=== PATIENT | female | born 1940 | race Caucasian/White ===

== ENCOUNTER 2020-12-23 17:19 | Observation (INO) | payer OTHER ==
--- OUTSIDE RECORDS SUMMARY | 2020-12-23 17:23 | XMS REPORT | Continuity of Care Document ---
:1940 Author Organization [facility] t Address [address] [place] [address] Care Team Providers Name Role Phone VLAD Primary Care Physician Unavailable SYSTEM, NOT IN Attending Clinician Unavailable VLAD Attending Clinician Unavailable Azeb Sevilla Attending Clinician VLAD Admitting Clinician Unavailable Payers Payer Name Policy Type Policy Effective Date Expiration Date Sour ce Number AETNA [facility] [id number] 2019 MD Rojas SUPPLEMENTAETAUGUST [facility] 00:00:00 SUPPLEMENT-SECONDARY [id number] 2018 -PresentMedigap MEDICAREMEDICARE PART [id number] MD Rojas A AND 00:00:00 [id number]-P [phone], [place] Problems Condition Condition Condition Status Onset Resolution Last Treating Co mments Source Name Details Category Date Date Treatment Clinician Date Lipoma of Lipoma of Problem Active [facility] forearm [facility] Abnormal Abnormal Problem Active [facility] findings Findings da on on Medical diagnostic Diagnostic Gr oup imaging of Imaging of lung Lung Respirator Respirator Problem Active M at[facility] y finding y Finding [facility] Lumbar Problem Active 2017-09-20 Memor ia spondylosi 02:35:58 l s Lumbar [facility] (disorder) spondylosi s (disorder) Active Problem 09/20/2017 Medical Group Rotator Problem Active 2017-09-20 Satya nathaniel cuff 02:35:58 l syndrome Rotator Alice nn (disorder) cuff syndrome (disorder) Active Problem 09/20/2017 Medical Group Tendinitis Problem Active 2017-09-20 M emoria of hip 02:35:58 l (disorder) Juan F n Tendinitis of hip (disorder) Active Problem 09/20/2017 [facility] Group Allergies, Adverse Reactions, Alerts Allergy Allergy Status Severity Reaction(s) Onset Inactive Treating Comm ents Source Name Type Date Date Clinician Plavix Allergy Active Itching [facility] Social History Social Habit Start Date Stop Date Quantity Comments Source Sex Assigned At MD Rojas Exposure to SARS-CoV-2 (event) Not sure MD Rojas Smoking Status Start Date Stop Date Source Social History 2017-09-17 23:08:18 2017-09-17 23:08:18 [facility] Medications Ordered Filled Start Stop Current Ordering Indication Dosage Frequency Signature Comments Components Source Medication Medication Date Date Medication? Clinician (SIG) Name Name tramadol 2016-10 Yes 1 or 2 Mem[facility] hydrochlori 2-01 tab, PO, l de 50 MG 23:19: Q6H, no Juan F n Oral Tablet 00 driving, X 30 day, # 60 tab, 0 Refill(s) amlodipine amlodipine No amlodipine [facility] 10 mg 10 mg 10 mg da tablet TAKE tablet TAKE tablet Medical 1 TABLET BY 1 TABLET BY TAKE 1 Group MOUTH ONCE MOUTH ONCE TABLET BY DAILY DAILY MOUTH ONCE DAILY amlodipine amlodipine No amlodipine [facility] 5 mg tablet 5 mg tablet 5 mg d a TAKE 1 TAKE 1 tablet Medical TABLET BY TABLET BY TAKE 1 Vidya up MOUTH TWICE MOUTH TWICE TABLET BY DAILY DAILY MOUTH TWICE DAILY aspirin aspirin No aspirin [facility] r 325MG ONCE 325MG ONCE 325MG ONCE da A DAY A DAY A DAY Medical Group atorvastati atorvastati No atorvastat [place] n 40 mg n 40 mg in 40 mg da tablet TAKE tablet TAKE tablet Medical 1 TABLET BY 1 TABLET BY TAKE 1 Group MOUTH ONCE MOUTH ONCE TABLET BY DAILY DAILY MOUTH ONCE DAILY biotin biotin No biotin [facility] Diovan HCT Diovan HCT No 1 Q1D Diovan HCT [facility] 320 mg-12.5 320 mg-12.5 320 d a mg tablet mg tablet mg-12.5 mg Medical Take 1 Take 1 tablet Group tablet tablet Take 1 every day every day tablet by oral by oral every day route. route. by oral route. Fluzone Fluzone No Fluzone [facility] High-Dose High-Dose High-Dose da [facility]ex [facility] (PF) 240 (PF) 240 (PF) 240 mcg/0.7 mL mcg/0.7 mL mcg/0.7 mL IM syringe IM syringe IM syringe PHARMACY PHARMACY PHARMACY ADMINISTERE ADMINISTERE ADMINISTER D D ED gabapentin gabapentin No 1capsul BID gabapentin [facility] 100 mg 100 mg e(s) 100 mg da capsule capsule capsule Medica l Take 1 Take 1 Take 1 Group capsule capsule capsule twice a day twice a day twice a by oral by oral day by route. route. oral route. hydrocodone hydrocodone No hydrocodon [facility] 5 5 e 5 da mg-acetamin mg-acetamin mg-acetami Medical ophen 325 ophen 325 nophen 325 Group mg tablet mg tablet mg tablet TAKE 1 TAKE 1 TAKE 1 TABLET(S) TABLET(S) TABLET(S) TWICE A DAY TWICE A DAY TWICE A BY ORAL BY ORAL DAY BY ROUTE FOR ROUTE FOR ORAL ROUTE 28 DAYS. 28 DAYS. FOR 28 DAYS. isosorbide isosorbide No isosorbide [facility] mononitrate mononitrate mononitrat da ER 60 mg ER 60 mg e ER 60 mg M edical tablet,exte tablet,exte tablet,ext Group nded nded ended release 24 release 24 release 24 hr TAKE 1 hr TAKE 1 hr TAKE 1 TABLET BY TABLET BY TABLET BY MOUTH ONCE MOUTH ONCE MOUTH ONCE DAILY DAILY DAILY latanoprost latanoprost No latanopros [facility] 0.005 % eye 0.005 % eye t 0.005 % da drops drops eye drops Medical INSTILL 1 INSTILL 1 INSTILL 1 Group DROP INTO DROP INTO DROP INTO EACH EYE AT EACH EYE AT EACH EYE BEDTIME BEDTIME AT BEDTIME losartan losartan No losartan [facility] 100 mg 100 mg 100 mg da tablet TAKE tablet TAKE tablet Medical 1 TABLET BY 1 TABLET BY TAKE 1 Group MOUTH ONCE MOUTH ONCE TABLET BY DAILY DAILY MOUTH ONCE DAILY metformin metformin No metformin [facility] 500 mg 500 mg 500 mg da tablet TAKE tablet TAKE tablet Medical 1 TABLET BY 1 TABLET BY TAKE 1 Group MOUTH ONCE MOUTH ONCE TABLET BY DAILY DAILY MOUTH ONCE DAILY metoprolol metoprolol No 1 Q1D metoprolol [facility] succ 50 succ 50 succ 50 da mg-hydrochl mg-hydrochl mg-hydroch Medical orothiazide orothiazide lorothiazi Group 12.5 mg 12.5 mg de 12.5 mg tablet,ext. tablet,ext. tablet,ext rel 24 hr rel 24 hr .rel 24 hr Take 1 Take 1 Take 1 tablet tablet tablet every day every day every day by oral by oral by oral route. route. route. metoprolol metoprolol No metoprolol [facility] tartrate 50 tartrate 50 tartrate da mg tablet mg tablet 50 mg Medi heidi TAKE 1 TAKE 1 tablet Group TABLET BY TABLET BY TAKE 1 MOUTH TWICE MOUTH TWICE TABLET BY DAILY DAILY MOUTH TWICE DAILY potassium potassium No potassium [facility] pravastatin pravastatin No 1 BID pravastati [facility] 40 mg 40 mg n 40 mg da tablet Take tablet Take tablet Medical 1 tablet 1 tablet Take 1 Group twice a day twice a day tablet by oral by oral twice a route. route. day by oral route. tizanidine tizanidine No tizanidine [facility] 2 mg tablet 2 mg tablet 2 mg d a TAKE 1 TAKE 1 tablet Medical TABLET BY TABLET BY TAKE 1 Vidya up MOUTH ONCE MOUTH ONCE TABLET BY DAILY AT DAILY AT MOUTH ONCE BEDTIME FOR BEDTIME FOR DAILY AT 28 DAYS 28 DAYS BEDTIME FOR 28 DAYS acetaminoph acetaminoph No acetaminop [facility] en 300 en 300 hen 300 da mg-codeine mg-codeine mg-codeine Medical 30 mg 30 mg 30 mg Group tablet TAKE tablet TAKE tablet 1 TABLET BY 1 TABLET BY TAKE 1 MOUTH TWICE MOUTH TWICE TABLET BY DAILY DAILY MOUTH NEEDED NEEDED TWICE DAILY NEEDED amlodipine amlodipine No amlodipine [facility] 5MG ONCE A 5MG ONCE A 5MG ONCE A da DAY DAY DAY Medical Group Immunizations Ordered Immunization Filled Immunization Date Status Commen ts Source Name Name influenza nasal, influenza nasal, 2011-10-18 Completed Andriy foster unspecified unspecified 00:00:00 Medical Grou p formulation formulation Pneumococcal Pneumococcal 2011-10-18 Completed Luis Eduardo Conjugate, Conjugate, 00:00:00 Medical Group unspecified unspecified formulation formulation Vital Signs Vital Name Observation Time Observation Value Comments Source BP Diastolic 2020-10-03 00:00:00 83 mm[Hg] [facility] Height 2020-10-03 00:00:00 65 [in_i] [facility] BMI (Body Mass 2020-10-03 00:00:00 24.8 kg/m2 [facility] human resources assistant manager Medical Index) Group BP Systolic 2020-10-03 00:00:00 157 mm[Hg] [facility] Body Weight 2020-10-03 00:00:00 149.3 [lb_av] [facility] Weight 2017-09-17 23:02:00 [facility] Heart Rate 2017-09-17 23:02:00 [facility] Systolic (mm Hg) 2017-09-17 23:02:00 Satya roc [facility] Diastolic (mm Hg) 2017-09-17 23:02:00 [facility] Procedures Procedure Date / Time Performed Performing Clinician Cecelia tracey MRI of shoulder 2017-06-09 05:00:00 [facility] rudd Hernia Repair 2011-10-18 00:00:00 [facility] Hernia Repair 2010-10-18 00:00:00 [facility] Colostomy Placement 2003-10-18 00:00:00 [facility] Other 2003-10-18 00:00:00 [facility] Hip replacement 1998-10-18 06:00:00 [facility] Her rudd Colonoscopy [facility] Plan of Care Planned Activity Planned Date Details Comments Source Instructions [facility] Encounters Start End Encounter Admission Attending Care Care Encounter Source Date/Time Date/Time Type Type Clinicians Facility Department ID 2020-12-19 Outpatient SYSTEM, [facility] [id number] 14:19:14 PROVIDER Jermain guthrie 2020-10-03 2020-10-03 Andre TOBIN [place] - [id number] Tim cage 00:00:00 00:00:00 DO Grabiel: [facility] barby jimenez [address] [place] [address] [facility] [address], [facility], [place] [address] , Ph. [phone] 2017-10-12 2017-10-12 Outpatient Kevyn [facility] [id number] [facility] 19:42:00 19:42:00 DOMENICA 2017-09-17 2017-09-17 Outpatient Roel, [facility] [id number] 16:45:00 23:59:59 Hector Sanchez Results Test Description Test Time Test Comments Results Result Comments Source CBC with Differential 2017-10-12 22:27:00 Test Item Value Reference Range Interpretation Comme nts WBC (test code = WBC) 5.4 K/cumm 4.4-10.5 N RBC (test code = RBC) 4.15 M/cumm 3.75-5.20 N Hemoglobin (test code = HGB) 13.5 gm/dL 12.2-14.8 N Hematocrit (test code = HCT) 42.6 % 36.5-44.4 N MCV (test code = MCV) 102.8 fL 80-100 H MCH (test code = MCH) 32.6 pg 27.0-32.5 H MCHC (test code = MCHC) 31.7 g/dL 32.0-37.5 L RDW (test code = RDW) 12.8 % 11.5-14.5 N Platelet Count (test code = PLTCT) 256 K/cumm 140-440 N MPV (test code = MPV) 9.3 fL Diff Method (test code = DIFFM) Manual Neutrophil (test code = NEUT) 57.0 % 36-70 N Lymphocyte (test code = LYMPH) 30.0 % 12-44 N Monocyte (test code = MONO) 7.0 % 0-11 N Eosinophil (test code = EOS) 5.0 % 0-7 N Basophil (test code = BASO) 1.0 % 0-2 N Neutro Abs (test code = ANEUT) 3.1 K/cumm 1.6-7.4 N Lymph Abs (test code = ALYMPH) 1.6 K/cumm 0.5-4.6 N [place] Abs (test code = AMONO) 0.4 K/cumm 0.0-1.2 N Eos Abs (test code = AEOS) 0.27 K/cumm 0.00-0.74 N Baso Abs (test code = ABASO) 0.1 K/cumm 0.00-0.21 N RBC Morphology (test code = RBCMRPH) Slight Macrocytosis Macrocytosis (test code = MACRO) Slight Platelet Est (test code = PLTEST) Adequate Platelets on Smear D-Dimer, [id number] 21:39:00 Test Item Value Reference Range Interpretation Comments D-Dimer, Quant (test code = DDQNT) 2327 ng/mL 0-500 H Lipid [id number] 20:34:00 Test Item Value Reference Range Interpretation Comments Cholesterol (test 191 mg/dL 0-200 N code = CHOL) Triglycerides (test 187 mg/dL 9-200 N code = TRIG) HDL (test code = 43 mg/dL 50-60 L HDL) Chol/HDL (test code 4.4 Ratio 0.0-4.4 N = CHOLPHDL) LDL, Calculated 111 0-130 N (NOTE)RISK O F HEART (test code = LDLC) DISEASEPu blished by [place] Heart AssociationAnal yte Optim al Boderline Increased RiskC HOL <200 200-239 >240TRI G <150 150-199 >200HDL Male: >60 <40HDL Female: >60 <50 LDL < 100 130-15 9 >160 LDL NEAR OPTIMAL IS 100- 129 VLDL (test code = 37 mg/dL 5-40 N VLDL) LDL/HDL (test code = 3 LDLPHDL) [id number] 20:34:00 Test Item Value Reference Range Interpretation Comments NT ProBnp (test code = PBNP) 120 pg/mL 0-449 N Comprehensive Metabolic [id number] 20:34:00 Test Item Value Reference Range Interpretation Comments Sodium (test code = 138 mmol/L 135-145 N NA) Potassium (test 3.7 mmol/L 3.5-5.1 N code = K) Chloride (test code 99 mmol/L 98-105 N = CL) Carbon Dioxide 29 mmol/L 22-29 N (test code = CO2) Glucose (test code 133 mg/dL 70-115 H = GLU) Blood Urea Nitrogen 13 mg/dL 8-23 N (test code = BUN) Creatinine (test 0.8 mg/dL 0.5-0.9 N code = CREAT) Calcium (test code 10.1 mg/dL 8.3-10.5 N = CA) Prot Total (test 7.4 g/dL 6.4-8.3 N code = TP) Albumin (test code 4.5 g/dL 3.5-5.2 N = ALB) A/G Ratio (test 1.6 Ratio code = AGRATIO) Globulin (test code 2.9 2.9-3.1 N = GLOB) Bili Total (test 0.8 mg/dL 0.1-0.9 N code = TBIL) Alk Phos (test code 55 U/L 35-104 N = APHOS) AST (test code = 33 U/L 1-32 H AST) ALT (test code = 32 U/L 1-33 N ALT) BUN/Creatinine 16.3 Ratio (test code = BCRATIO) Anion Gap (test 10 mmol/L 7-16 N code = AGAP) Estimated GFR (test >60 eGFR (es timated code = GFR) mL/min/1.73m2 Glomerular Michael tration Rate) is an est imated value,calculate d from the patient's s artemio creatinine usin g the MDRD equation.I t is NOT the patient 's actual GFR. The eGFR provides a more clinicallyusefu l measure of kidn ey disease than se rum creatinine alone.This calculation diogenes es sex and race into account, if the informationis provided. If th e race is not provided , and the patient isAfrican-Ameri can, multiply by 1.2 12. If sex is not prov ided, and thepatient is female, multipl y by 0.742. Results for patients <18 ye ars ofage have not been validated by th e MDRD study and shoul d be interpretedwith caution.eGFR Re sult Interpretation: eGFR > or = 60 is in t he Normal RangeeGF R < 60 may mean kidney diseaseeGFR < 1 5 may mean kidney failureRange s recommended by the National Kidney Foundation,http ://nkd ep.nih.gov
[2020-12-23] MEDS ORDERED: MORPHINE 2 MG/ML SYR IV PRN (18:10)
[2020-12-23] MEDS ORDERED: ONDANSETRON 4 MG/2 ML VIAL IV PRN (18:10)
[2020-12-23] MEDS ORDERED: ACETAMINOPHEN 500 MG TAB PO PRN (18:10)
[2020-12-23] MEDS ORDERED: FUROSEMIDE 20 MG/ 2ML VIAL IV ONE (18:29)
[2020-12-23] MEDS ORDERED: NA CHLORIDE 0.9% 250 ML IV SCH (19:00)
[2020-12-23 20:54] VITALS: BMI 23.1
[2020-12-23] MEDS ORDERED: NA CHLORIDE 0.9% 250 ML ONE (23:40)
[2020-12-23 23:58] VITALS: O2SAT 99
--- NOTE | 2020-12-24 00:42 | P.HP ---
Certification for Inpatient Patient admitted to: Observation With expected LOS: <2 Midnights Patient will require the following post-hospital care: None Practitioner: I am a practitioner with admitting privileges, knowledge of patient current condition, hospital course, and medical plan of care. Services: Services provided to patient in accordance with Admission requirements found in Title 42 Section 412.3 of the Code of Federal Regulations Patient History Date of Service: 12/24/20 Reason for admission: blood transfusion History of Present Illness: Ms. Quinones is an 80 yo female with newly diagnosed esophageal cancer, HTN, and history of anemia here today as a direct admit for a blood transfusion. Today was her first day of chemotherapy, but was found to have a low hemoglobin on blood work so initial round was stopped and she was brought here for a transfusion so she can finish her chemotherapy session tomorrow. She reports increased fatigue, dizziness and FREEDMAN over the past few weeks. She denies palpitations. Allergies clopidogrel [From Plavix] Allergy (Verified 12/23/20 20:54) Rash meperidine [From Demerol] Allergy (Verified 12/23/20 20:54) Rash Home Medications: Aspirin 325 mg PO DAILY 12/23/20 Atorvastatin Calcium 40 mg PO DAILY 12/23/20 Folic Acid 1 tab PO DAILY 12/23/20 Isosorbide Mononitrate [Isosorbide Mononitrate ER] 60 mg PO DAILY 12/23/20 Latanoprost/Pf [Latanoprost 0.005% Eye Drop] 1 drop EACH EYE BEDTIME 12/23/20 Losartan Potassium 100 mg PO DAILY 12/23/20 Metoprolol Tartrate 50 mg PO BID 12/23/20 Vitamin B Complex [B Complex] 1 tab PO DAILY 12/23/20 - Past Medical/Surgical History Has patient received pneumonia vaccine in the past: Yes Diabetic: No -: Hypertension -: High Cholesterol -: Cancer of the Esophagus -: Diverticulitis -: h/o anemia -: Shoulder Replacement -: HIp Replacement -: Colon Resection - Family History Mother -: Diabetes - Social History Smoking Status: Former smoker Caffeine use: Yes Place of Residence: Home Review of Systems General: Malaise, As per HPI Eyes: Unremarkable ENT: Unremarkable Respiratory: Shortness of Breath, SOB with Excertion, As per HPI Cardiovascular: Unremarkable Gastrointestinal: Unremarkable Genitourinary: Unremarkable Musculoskeletal: Unremarkable Integumentary: Unremarkable Neurological: Other (dizziness) Lymphatics: Unremarkable Physical Examination - Vital Signs Temperature: 97.8 F Blood Pressure: 141/64 Pulse: 76 Respirations: 18 Pulse Ox (%): 100 - Physical Exam General: Alert, In no apparent distress, Oriented x3, Cooperative HEENT: Atraumatic, Normocephalic, PERRLA, Mucous membr. moist/pink, EOMI, Sclerae nonicteric Neck: Supple, 2+ carotid pulse no bruit, JVD not distended, No Thyromegaly, No LAD Respiratory: Clear to auscultation bilaterally, Normal air movement Cardiovascular: No edema, Normal pulses, Regular rate/rhythm, Normal S1 S2, No gallops, No rubs, No murmurs Capillary refill: <2 Seconds Gastrointestinal: Normal bowel sounds, Soft and benign, Non-distended, No ascites, No tenderness, No masses, No rebound, No guarding Musculoskeletal: No clubbing, No swelling, No contractures, No erythema, No tenderness, No warmth Integumentary: No rashes, No breakdown, No significant lesion, No tenderness/swelling, No erythema, No warmth, No cyanosis Neurological: Normal speech, Normal strength at 5/5 x4 extr, Normal tone, Sensation intact, Cranial nerves 3-12 intact, Normal affect Lymphatics: No axilla or inguinal lymphadenopathy Assessment and Plan - Problems (Diagnosis) (1) Blood transfusion during current hospitalisation Current Visit: Yes Status: Acute Plan: -will give 2 pRBCs and recheck H/H -CBC, iron panel, B12, and folate pending -will continue to monitor (2) HLD (hyperlipidemia) Current Visit: Yes Status: Chronic Plan: continue home medications. Qualifiers: Hyperlipidemia type: unspecified Qualified Code(s): E78.5 - Hyperlipidemia, unspecified (3) HTN (hypertension) Current Visit: Yes Status: Chronic Plan: continue home medications Qualifiers: Hypertension type: essential hypertension Qualified Code(s): I10 - Essential (primary) hypertension Discharge Plan: Home Plan to discharge in: 24 Hours - Advance Directives Does patient have a Living Will: Yes Does patient have a Durable POA for Healthcare: Yes - Code Status/Comfort Care Code Status Assessed: Yes (full code) Critical Care: No Time Spent Managing Pts Care (In Minutes): 70
[2020-12-24] MEDS ORDERED: FUROSEMIDE 20 MG/ 2ML VIAL IV ONE (05:33)
[2020-12-24] MEDS: LOSARTAN POTASSIUM 50 MG TABLET PO SCH ×2 (08:37→08:38)
[2020-12-24 08:51] LABS: Absolute Lymphocytes (CBC) 0.4 K/uL (0.7-4.9); Basophils % 0.1 % (0-1.3); Hematocrit 29.4 % (36.0-45.0); Lymphocytes % 2.5 % (15.3-44.8); MPV 7.7 fL (7.6-11.3); RBC Red Blood Cell Count 3.69 M/uL (3.86-4.86)
[2020-12-24 08:52] LABS: Protime INR 1.03
[2020-12-24] MEDS ORDERED: METOPROLOL TAR 50 MG TAB PO SCH (09:00)
[2020-12-24] MEDS ORDERED: ISOSORBIDE MONO SR 60 MG TAB PO SCH (09:00)
[2020-12-24] MEDS ORDERED: ATORVASTATIN 40 MG TAB PO SCH (09:00)
[2020-12-24] MEDS ORDERED: FOLIC ACID 1 MG TABLET PO SCH (09:00)
[2020-12-24] MEDS ORDERED: VITAMIN B COMPLEX 1 CAP PO SCH (09:00)
[2020-12-24 09:52] LABS: Albumin 2.9 g/dL (3.4-5.0); Bilirubin Total 0.8 mg/dL (0.2-1.0); Potassium 4.6 mmol/L (3.5-5.1); Protein, Total 7.5 g/dL (6.4-8.2)
[2020-12-24 10:10] LABS: Anisocytosis SLIGHT; Blood Morphology Comment NOTED (NOT SEEN); Hypersegmented Neutrophils PRESENT; Hypochromasia 1+; Platelet Estimate ADEQ
[2020-12-24 14:04] LABS: Absolute Lymphocytes (CBC) 0.6 K/uL (0.7-4.9); Hematocrit 25.4 % (36.0-45.0); Lymphocytes % 3.4 % (15.3-44.8); MPV 7.5 fL (7.6-11.3); RBC Red Blood Cell Count 3.23 M/uL (3.86-4.86)
[2020-12-24 14:44] LABS: Blood Morphology Comment NOTED (NOT SEEN); Hypochromasia 1+; Platelet Estimate ADEQ; White Blood Cell Scan OK (OK)
[2020-12-24 14:46] VITALS: BP 117/61; TEMP 96.7
[2020-12-24] MEDS ORDERED: ENSURE ENLIVE 237 ML CAN PO SCH (21:00)
[2020-12-24] MEDS ORDERED: LATANOPROST 0.005% 2.5ML OPTH OPTH SCH (21:00)
[2020-12-27 00:10] LABS: Transferrin 268 mg/dL (200-360)
[2020-12-27 00:44] LABS: Folic Acid, (Folate) < 20.0 ng/mL (3.1-17.5)
--- NOTE | 2021-01-14 00:26 | P.DS ---
Discharge Date: 12/24/20 Disposition: ROUTINE DISCHARGE Discharge Condition: GOOD Reason for Admission: blood transfusion Brief History of Present Illness: Ms. Quinones is an 80 yo female with newly diagnosed esophageal cancer, HTN, and history of anemia here today as a direct admit for a blood transfusion. Today was her first day of chemotherapy, but was found to have a low hemoglobin on blood work so initial round was stopped and she was brought here for a transfusion so she can finish her chemotherapy session tomorrow. She reports increased fatigue, dizziness and FREEDMAN over the past few weeks. She denies palpitations. Hospital Course: Patient was transfused 2 units of packed red blood cells and hemoglobin is stable. Patient is clinically doing well. At this time, patient is stable for discharge with close outpatient followup with hematology. Vital Signs/Physical Exam: Temp Pulse Resp BP Pulse Ox 96.7 F L 60 16 117/61 97 12/24/20 12:00 12/24/20 12:00 12/24/20 12:00 12/24/20 12:00 12/24/20 12:00 General: Alert, In no apparent distress, Oriented x3 Laboratory Data at Discharge: WBC 17.00 K/uL (4.3-10.9) H D 12/24/20 13:34 Hgb 8.2 g/dL (12.0-15.0) L 12/24/20 13:34 Hct 25.4 % (36.0-45.0) L 12/24/20 13:34 Plt Count 371 K/uL (152-406) 12/24/20 13:34 PT 11.8 SECONDS (9.5-12.5) 12/24/20 08:24 INR 1.03 12/24/20 08:24 APTT 19.8 SECONDS (24.3-36.9) L 12/24/20 08:24 Sodium 128 mmol/L (136-145) L 12/24/20 08:24 Potassium 4.6 mmol/L (3.5-5.1) 12/24/20 08:24 BUN 17 mg/dL (7-18) 12/24/20 08:24 Creatinine 0.68 mg/dL (0.55-1.3) 12/24/20 08:24 Glucose 192 mg/dL (74-106) H 12/24/20 08:24 Total Bilirubin 0.8 mg/dL (0.2-1.0) 12/24/20 08:24 AST 21 U/L (15-37) 12/24/20 08:24 ALT 18 U/L (12-78) 12/24/20 08:24 Alkaline Phosphatase 102 U/L (45-117) 12/24/20 08:24 Home Medications: Aspirin 325 mg PO DAILY 12/23/20 Atorvastatin Calcium 40 mg PO DAILY 12/23/20 Folic Acid 1 tab PO DAILY 12/23/20 Isosorbide Mononitrate [Isosorbide Mononitrate ER] 60 mg PO DAILY 12/23/20 Latanoprost/Pf [Latanoprost 0.005% Eye Drop] 1 drop EACH EYE BEDTIME 12/23/20 Losartan Potassium 100 mg PO DAILY 12/23/20 Metoprolol Tartrate 50 mg PO BID 12/23/20 Vitamin B Complex [B Complex] 1 tab PO DAILY 12/23/20 Physician Discharge Instructions: -OK TO DC IV AND DC HOME -FOLLOW-UP WITH PCP IN 1-2 WEEKS -FOLLOW-UP WITH Hematology IN 1-2 WEEKS -PLEASE MAKE SURE ALL DIAGNOSTIC STUDIES ARE AVAILABLE AND HAVE BEEN REVIEWED WITH PATIENT PRIOR TO DISCHARGE -RETURN TO THE ER IF Symptoms worsen -CALL DR. SHEPPARD AT [phone] IF ANY QUESTIONS REGARDING HOSPITAL STAY -PLEASE CALL THE FLOOR AT [phone] IF ANY MEDICATION OR NURSING QUESTIONS Diet: Regular Activity: Fall precautions Time spent managing pt's care (in minutes): 30
== END 2020-12-24 15:25 | disposition home or self-care (01) ==
LOC: 2ND 17:19
PROVIDERS: ADMIT Hospitalist; ATTEND Hospitalist
DX: C15.9 Malignant neoplasm of esophagus, unspecified (principal); D63.0 Anemia in neoplastic disease; I10 Essential (primary) hypertension; E78.00 Pure hypercholesterolemia, unspecified; Z96.619 Presence of unspecified artificial shoulder joint; Z96.649 Presence of unspecified artificial hip joint; Z87.891 Personal history of nicotine dependence; E78.5 Hyperlipidemia, unspecified
CPT/HCPCS: 36430 ×2; 85025 ×2; 36415; 86900; 86850; 85610; 86901; 85730; 82728; 82746; 82607; 83540; 80053; 84466; J1940; G0378 ×2; P9016 ×2; J7050 ×2

== ENCOUNTER 2021-09-16 10:55 | Inpatient (IN) | payer OTHER ==
--- OUTSIDE RECORDS SUMMARY | 2021-09-16 10:58 | XMS REPORT | Clinical Summary ---
:1940 Author Organization [facility] MD [facility] Address [address] [place] [address] Care Team Providers Name Role Phone Shelbie Valenzuela MD Unavailable Allergies Not on File Medications Not on file Active Problems Not on file Encounters Date Type Specialty Care Team Description 01/07/2021 Ancillary Procedure Radiology Cancer 01/07/2021 Ancillary Procedure Radiology Cancer 01/07/2021 Ancillary Procedure Radiology Cancer 01/07/2021 Ancillary Procedure Radiology Cancer 01/05/2021 Ancillary Procedure Radiology Cancer 12/25/2020 Lab Requisition Bahman Noriega MD Young, Jerry D, MD 12/19/2020 Travel after 09/16/2020 Social History Tobacco Use Types Packs/Day Years Used Date Never Assessed Sex Assigned at Date Recorded Not on file Last Filed Vital Signs Not on file Plan of Treatment Not on file Procedures Procedure Name Priority Date/Time Associated Comments Diagnosis OSI INTERVENTIONAL Routine 12/09/2020 7:45 Cancer Resul ts for this PM TOXICOLOGY SUPERVISOR procedure are i n the results section. OSI US VASCULAR Routine 12/09/2020 7:45 Cancer Results for this PM TOXICOLOGY SUPERVISOR procedure are i n the results section. OSI CT CHEST ABDOMEN Routine 10/31/2020 7:45 Cancer Res ults for this PELVIS PM TOXICOLOGY SUPERVISOR procedure are i n the results section. after 09/16/2020 Results OSI Interventional (12/09/2020 7:45 PM TOXICOLOGY SUPERVISOR) Specimen Narrative Systemgenerated, Documentation - 021 8:45 PM CDT Study acquired at another institution. For comparison only. No MD Rojas originated interpretation requested or a vailable. OSI US Vascular (12/09/2020 7:45 PM TOXICOLOGY SUPERVISOR) Specimen Narrative Systemgenerated, Documentation - 021 8:45 PM CDT Study acquired at another institution. For comparison only. No MD Rojas originated interpretation requested or a vailable. OSI CT CHEST ABDOMEN PELVIS (10/31/2020 7:45 PM TOXICOLOGY SUPERVISOR) Specimen Narrative Systemgenerated, Documentation - 021 8:46 PM CDT Study acquired at another institution. For comparison only. No MD Rojas originated interpretation requested or a vailable. after 09/16/2020 Insurance Payer Benefit Plan Subscriber ID Effective Phone Address Typ e / Group Dates AETNA SENIOR AETNA SENIOR [id number] 2019-Prese [address] [employer] [id number] [place] [address] MEDICARE MEDICARE PART [id number] 2002-Prese [phone] [facility] Medicare A AND B nt 782 SOLUTIONS [address] [facility] [address] Nadya Quinones Personal/Family Self 1940 [address] (Home) [place] [address] Care Teams Computer Service Technician Relationship Specialty Start Date End Date Amirah Valenzuela, PCP - External Primary Care Family Practice MD Provider [address] [place] [address]
--- OUTSIDE RECORDS SUMMARY | 2021-09-16 11:01 | XMS REPORT | Continuity of Care Document ---
:1940 Author Organization [facility] t Address [address] [place] [address] Care Team Providers Name Role Phone VLAD Primary Care Physician Unavailable Carlton Attending Clinician Unavailable Lindsay Attending Clinician Unavailable SYSTEM, NOT IN Attending Clinician Unavailable GARCIA Attending Clinician Unavailable ELAINE PARRY Attending Clinician Unavailable Pamela Noriega MD Attending Clinician Fredi Spain MD Attending Clinician VLAD Attending Clinician Unavailable Carlton Admitting Clinician Unavailable Lindsay Admitting Clinician Unavailable ERROLHOPE Admitting Clinician Unavailable VLAD Admitting Clinician Unavailable Payers Payer Name Policy Type Policy Number Effective Expiration Source Date Date MEDICARE B-[place]: [id number] 2002 NOV[employer]ima SOLUTIONS 00:00:00 AETNA (MEDICARE [id number] SUPPLEMENT) [facility] [id number] [facility] INS [id number] 2008 CO (PPO) 00:00:00 [employer] [id number] COMPANY - MEDICARE SELECT - PLAN F (MEDICARE SUPPLEMENT) AETNA SENIOR [id number] 2019 MD Rojas SUPPLEMENTAETNA 00:00:00 SENIOR SUPPLEMENT-SECONDARY [id number] 9-PresentPO [address] [address], [place] [address]Agidobt MEDICAREMEDICARE PART [id number] 2002 MD Bob Tapia AND 00:00:00 [id number] 2002- [id number] [place], [place] [address]Medicare Problems Condition Condition Condition Status Onset Resolution [...] y finding y Finding [facility] Allergies, Adverse Reactions, Alerts Allergy Allergy Status Severity Reaction(s) Onset Inactive Treating Comm ents Source Name Type Date Date Clinician MEPERIDI Allergy [facility] Low [facility] CLOPIDOG Allergy [facility] Plavix Allergy Active Itching [facility] Social History Social Habit Start Date Stop Date Quantity Comments Source Sex Assigned At [birth year] MD Rojas 00:00:00 00:00:00 Smoking Status Start Date Stop Date Source Former Smoker [facility] Medications Ordered Filled Start Stop Current Ordering Indication Dosage Frequency Signature Comments Components Source Medication Medication Date Date Medication? Clinician (SIG) Name Name latanoprost latanoprost No latanopros [place] 0.005 % [...] [facility] amlodipine amlodipine No amlodipine [place] 10 mg [...] Fluzone [place] High-Dose High-Dose High-Dose da [facility] (PF) 240 (PF) 240 (PF) 240 [...] MOUTH ONCE MOUTH ONCE DAILY DAILY DAILY Immunizations Ordered Immunization Filled Immunization Date Status Commen ts Source Name Name influenza nasal, influenza nasal, 2011-10-18 Completed [place] unspecified unspecified 00:00:00 Medical Grou p formulation formulation Pneumococcal Pneumococcal 2011-10-18 Completed Luis Eduardo Conjugate, Conjugate, 00:00:00 Medical Group unspecified unspecified formulation formulation Vital Signs Vital Name Observation Time Observation Value Comments Source WEIGHT 2021-05-15 06:50:00 71.215 kg WEIGHT 2021-05-14 11:00:00 71.351 kg WEIGHT 2021-05-13 05:22:00 73.9 kg WEIGHT 2021-05-12 05:52:00 73.5 kg WEIGHT 2021-05-11 06:00:00 70.9 kg WEIGHT 2021-05-10 06:00:00 67.2 kg HEIGHT 2021-05-09 13:00:00 165.1 cm WEIGHT 2021-05-09 13:00:00 67.2 kg HEIGHT 2021-05-08 16:28:00 152.4 cm WEIGHT 2021-05-08 16:28:00 65.318 kg WEIGHT 2021-05-15 06:50:00 71.215 kg WEIGHT 2021-05-14 11:00:00 71.351 kg WEIGHT 2021-05-13 05:22:00 73.9 kg WEIGHT 2021-05-12 05:52:00 73.5 kg WEIGHT 2021-05-11 06:00:00 70.9 kg WEIGHT 2021-05-10 06:00:00 67.2 kg HEIGHT 2021-05-09 13:00:00 165.1 cm WEIGHT 2021-05-09 13:00:00 67.2 kg HEIGHT 2021-05-08 16:28:00 152.4 cm WEIGHT 2021-05-08 16:28:00 65.318 kg BP Diastolic 2020-10-03 00:00:00 83 mm[Hg] [facility] Height 2020-10-03 00:00:00 65 [in_i] [facility] BMI (Body Mass 2020-10-03 00:00:00 24.8 kg/m2 [facility]) Group BP Systolic 2020-10-03 00:00:00 157 mm[Hg] [facility] Body Weight 2020-10-03 00:00:00 149.3 [lb_av] [facility] Procedures Procedure Date / Time Performing Clinician Source Performed OSI INTERVENTIONAL 2020-12-10 01:45:35 Amirah Valenzuela MD A nderson OSI US VASCULAR 2020-12-10 01:45:17 Amirah Valenzuela MD Shan rson OSI CT CHEST ABDOMEN 2020-11-01 01:45:56 Reena Alaniz MD Shan rson PELVIS Hernia Repair 2011-10-18 00:00:00 [facility] Hernia Repair 2010-10-18 00:00:00 [facility] Colostomy Placement 2003-10-18 00:00:00 [facility] Other 2003-10-18 00:00:00 [facility] Plan of Care Planned Activity Planned Date Details Comments Source Instructions [facility] Encounters Start End Encounter Admission Attending Care Care Encounter Source Date/Time Date/Time Type Type Clinicians Facility Department ID 2021-09-06 Outpatient Young_J MMG MM [place] 22:15:23 [facility]25 [facility] 2021-09-03 Outpatient Young_J MMG MMG [place] 14:02:01 [facility] 2021-09-03 Outpatient Young_J MMG MMG [place] 13:51:34 223 [facility] 2021-09-03 Outpatient Young_J MMG MMG [place] 13:35:08 219 [facility] 2021-09-03 Outpatient Maluf_C MMG MMG [place] 13:27:23 217 [facility] 2021-09-03 Outpatient Maluf_C MMG MMG [place] 13:15:01 215 [facility] 2021-09-03 Outpatient Maluf_C MM MM [place] 11:30:06 118 Medical Group 2021-08-30 Outpatient Young_J MM MM 4268 [place] 15:20:37 422 Medical [facility] 2021-08-30 Outpatient Young_J MMG MM 4268 [place] 01:08:45 330 Medical [facility] 2021-08-29 Outpatient Young_J MMG MM 4268 [place] 19:56:26 219 Medical Group 2021-08-29 Outpatient Young_J MMG MM 42 [place] 19:19:49 210 Medical [facility] 2021-08-29 Outpatient Young_J MM MM 4268 [place] 17:17:29 123 Medical [facility] 2021-08-29 Outpatient Young_J MM MM 4268 [place] 15:53:08 108 [facility] 2020-12-19 Outpatient SYSTEM, MDA MDA [id number] 14:19:14 PROVIDER Jermain guthrie 2021-05-10 2021-05-10 Outpatient YESSICA ZELAYA 100 [id number] Yessica 00:00:00 00:00:00 MAYRA dior 2021-05-08 2021-05-08 [facility] [id number] [address] [place] [address] 00:00:00 23:59:00 Mallory 2021-05-08 2021-05-08 Emergency ER [facility] Emergency [id number] [facility] 16:14:00 16:14:00 2021-01-07 2021-01-07 Outpatient EL MDA MDA [id number] MD 18:04:58 18:04:58 Jermain o [place] 2021-01-07 2021-01-07 Outpatient EL MDA MDA [id number] MD 18:04:53 18:04:53 Jermain o [place] 2021-01-07 2021-01-07 Outpatient EL MDA MDA [id number] MD 18:04:49 18:04:49 Jermain o [place] 2021-01-07 2021-01-07 Outpatient EL MDA MDA [id number] MD 18:04:45 18:04:45 Jermain guthrie 2021-01-05 2021-01-05 Outpatient [facility] [id number] 20:32:06 20:32:06 Jermain guthrie 2020-10-03 2020-10-03 Andre MMG [place] - [id number] M [facility] 00:00:00 00:00:00 Grabiel, DO: d a 600 [facility] [address] [place] - [address], [facility], [facility] [address] , Ph. [phone] 2017-10-12 2017-10-12 [id number] 19:42:00 19:42:00 [facility] 2017-05-13 2017-05-13 Outpatient Jocelyn_Kevyn [facility] [id number] [place] 03:09:00 03:09:00 225 [facility] Results Test Description Test Time Test Comments Results Result Comments Source POCT-GLUCOSE METER 2021-05-15 12:43:00 Test Item Value Reference Range Interpretation Comme nts POC-GLUCOSE METER (BEAKER) 117 mg/dL 70-110 H : [facility] [facility] (test code = 1538) [facility], [address]: Gravel Roofer/Techni mindi ID = [id number] for BRIAN LOMELI POCT-GLUCOSE [id number] 08:21:00 Test Item Value Reference Range Interpretation Comments POC-GLUCOSE METER 141 mg/dL 70-110 H : [facility] ([facility]) (test code = [place] [facility], 1538) [address]: Gravel Roofer/Techni mindi ID = [id number] for BRIAN RUSSELL COMPREHENSIVE METABOLIC [id number] 05:28:00 Test Item Value Reference Range Interpretation Comments TOTAL PROTEIN 4.8 gm/dL 6.0-8.3 L (BEAKER) (test code = 770) ALBUMIN (BEAKER) 2.3 g/dL 3.5-5.0 L (test code = 1145) ALKALINE PHOSPHATASE 375 U/L 40-150 H (BEAKER) (test code = 346) BILIRUBIN TOTAL 1.3 mg/dL 0.2-1.2 H (BEAKER) (test code = 377) SODIUM (BEAKER) (test 137 meq/L 136-145 code = 381) POTASSIUM (BEAKER) 3.9 meq/L 3.5-5.1 (test code = 379) CHLORIDE (BEAKER) 108 meq/L 98-107 H (test code = 382) CO2 (BEAKER) (test 20 meq/L 22-29 L code = 355) BLOOD UREA NITROGEN 8 mg/dL 7-21 (BEAKER) (test code = 354) CREATININE (BEAKER) 0.65 mg/dL 0.57-1.25 (test code = 358) GLUCOSE RANDOM 100 mg/dL 70-105 (BEAKER) (test code = 652) CALCIUM (BEAKER) 8.3 mg/dL 8.4-10.2 L (test code = 697) AST (SGOT) (BEAKER) 47 U/L 5-34 H (test code = 353) ALT (SGPT) (BEAKER) 32 U/L 6-55 (test code = 347) EGFR (BEAKER) (test 87 mL/min/1.73 ESTIMA MEGHAN GFR IS code = 1092) sq m NOT ACCURATE CREATININE CLEARANCE IN PREDICTING GLOMERULAR FILTRATION RATE . ESTIMATED GFR I S NOT APPLICABLE FOR DIALYSIS PATIEN TS. Gravel Roofer ID - [id number] 05:28:00 Test Item Value Reference Range Interpretation Comments MAGNESIUM (BEAKER) (test code = 1.6 mg/dL 1.6-2.6 627) Gravel Roofer ID - [id number] 05:28:00 Test Item Value Reference Range Interpretation Comments PHOSPHORUS (BEAKER) (test code = 2.2 mg/dL 2.3-4.7 L 604) Gravel Roofer ID - BSCBC W/PLT COUNT & AUTO [id number] 04:40:00 Test Item Value Reference Range Interpretation Comments WHITE BLOOD CELL COUNT (BEAKER) 4.8 K/ L 3.5-10.5 (test code = 775) RED BLOOD CELL COUNT (BEAKER) 2.35 M/ L 3.93-5.22 L (test code = 761) HEMOGLOBIN (BEAKER) (test code = 7.2 GM/DL 11.2-15.7 L 410) HEMATOCRIT (BEAKER) (test code = 22.8 % 34.1-44.9 L 411) MEAN CORPUSCULAR VOLUME (BEAKER) 97.0 fL 79.4-94.8 H (test code = 753) MEAN CORPUSCULAR HEMOGLOBIN 30.6 pg 25.6-32.2 (BEAKER) (test code = 751) MEAN CORPUSCULAR HEMOGLOBIN CONC 31.6 GM/DL 32.2-35.5 L (BEAKER) (test code = 752) RED CELL DISTRIBUTION WIDTH 17.2 % 11.7-14.4 H (BEAKER) (test code = 412) PLATELET COUNT (BEAKER) (test 139 K/CU MM 150-450 L code = 756) MEAN PLATELET VOLUME (BEAKER) 10.3 fL 9.4-12.3 (test code = 754) NUCLEATED RED BLOOD CELLS 0 /100 WBC 0-0 (BEAKER) (test code = 413) NEUTROPHILS RELATIVE PERCENT 60 % (BEAKER) (test code = 429) LYMPHOCYTES RELATIVE PERCENT 26 % (BEAKER) (test code = 430) MONOCYTES RELATIVE PERCENT 9 % (BEAKER) (test code = 431) EOSINOPHILS RELATIVE PERCENT 4 % (BEAKER) (test code = 432) BASOPHILS RELATIVE PERCENT 1 % (BEAKER) (test code = 437) NEUTROPHILS ABSOLUTE COUNT 2.88 K/ L 1.56-6.13 (BEAKER) (test code = 670) LYMPHOCYTES ABSOLUTE COUNT 1.26 K/ L 1.18-3.74 (BEAKER) (test code = 414) MONOCYTES ABSOLUTE COUNT (BEAKER) 0.41 K/ L 0.24-0.36 H (test code = 415) EOSINOPHILS ABSOLUTE COUNT 0.18 K/ L 0.04-0.36 (BEAKER) (test code = 416) BASOPHILS ABSOLUTE COUNT (BEAKER) 0.03 K/ L 0.01-0.08 (test code = 417) IMMATURE GRANULOCYTES-RELATIVE 1 % 0-1 PERCENT (BEAKER) (test code = 2801) POCT-GLUCOSE [id number] 22:03:00 Test Item Value Reference Range Interpretation Comments POC-GLUCOSE METER 119 mg/dL 70-110 H : TESTED Willie Mckeon [facility] 6720 (BEAKER) (test code = [place], 1538) [address]: Gravel Roofer/Techni mindi ID = [id number] for Shaka Alas POCT-GLUCOSE [id number] 17:32:00 Test Item Value Reference Range Interpretation Comments POC-GLUCOSE METER 93 mg/dL 70-110 : TESTED A T [facility] 6720 (BEAKER) (test code = [facility], 1538) [address]: Gravel Roofer/Techni mindi ID = [id number] for BRIAN FRANKS POCT-GLUCOSE [id number] 11:24:00 Test Item Value Reference Range Interpretation Comments POC-GLUCOSE METER 107 mg/dL 70-110 : TESTED A T [facility] 6720 (BEAKER) (test code = [facility], 1538) [address]: Gravel Roofer/Techni mindi ID = [id number] for BRIAN RUSSELL OVA AND PARASITE [id number] 09:44:00 Test Item Value Reference Range Interpretation Comments DIRECT SMEAR - No ova or parasites No ova or parasites O\T\P (BEAKER) seen seen (test code = 196) See scanned reportBLOOD [id number] 09:00:00 Test Item Value Reference Range Interpretation Comments CULTURE (BEAKER) (test No growth in 5 days code = 1095) BLOOD [id number] 09:00:00 Test Item Value Reference Range Interpretation Comments CULTURE (BEAKER) (test No growth in 5 days code = 1095) STOOL CULTURE + SHIGA [id number] 08:03:00 Test Item Value Reference Range Interpretation Comments CULTURE (BEAKER) No Salmonella, Shigella (test code = 1095) or Campylobacter isolated POCT-GLUCOSE [id number] 07:55:00 Test Item Value Reference Range Interpretation Comments POC-GLUCOSE METER 88 mg/dL 70-110 : TESTED A T [facility] 6720 (BEAKER) (test code = [facility], 1538) [address]: Gravel Roofer/Techni mindi ID = [id number] for BRIAN FRANKS COMPREHENSIVE METABOLIC [id number] 05:14:00 Test Item Value Reference Range Interpretation Comments TOTAL PROTEIN 4.9 gm/dL 6.0-8.3 L (BEAKER) (test code = 770) ALBUMIN (BEAKER) 2.5 g/dL 3.5-5.0 L (test code = 1145) ALKALINE PHOSPHATASE 357 U/L 40-150 H (BEAKER) (test code = 346) BILIRUBIN TOTAL 1.8 mg/dL 0.2-1.2 H (BEAKER) (test code = 377) SODIUM (BEAKER) (test 134 meq/L 136-145 L code = 381) POTASSIUM (BEAKER) 3.9 meq/L 3.5-5.1 (test code = 379) CHLORIDE (BEAKER) 107 meq/L 98-107 (test code = 382) CO2 (BEAKER) (test 22 meq/L 22-29 code = 355) BLOOD UREA NITROGEN 11 mg/dL 7-21 (BEAKER) (test code = 354) CREATININE (BEAKER) 0.66 mg/dL 0.57-1.25 (test code = 358) GLUCOSE RANDOM 88 mg/dL 70-105 (BEAKER) (test code = 652) CALCIUM (BEAKER) 8.1 mg/dL 8.4-10.2 L (test code = 697) AST (SGOT) (BEAKER) 57 U/L 5-34 H (test code = 353) ALT (SGPT) (BEAKER) 43 U/L 6-55 (test code = 347) EGFR (BEAKER) (test 86 mL/min/1.73 ESTIMA MEGHAN GFR IS code = 1092) sq m NOT ACCURATE CREATININE CLEARANCE IN PREDICTING GLOMERULAR FILTRATION RATE . ESTIMATED GFR I S NOT APPLICABLE FOR DIALYSIS PATIEN TS. Gravel Roofer ID - MARK [id number] 05:14:00 Test Item Value Reference Range Interpretation Comments MAGNESIUM (BEAKER) (test code = 1.7 mg/dL 1.6-2.6 627) Gravel Roofer ID - MARK [id number] 05:14:00 Test Item Value Reference Range Interpretation Comments PHOSPHORUS (BEAKER) (test code = 2.6 mg/dL 2.3-4.7 604) Gravel Roofer ID - MARK MCBC W/PLT COUNT & AUTO [id number] 04:39:00 Test Item Value Reference Range Interpretation Comments WHITE BLOOD CELL COUNT (BEAKER) 6.2 K/ L 3.5-10.5 (test code = 775) RED BLOOD CELL COUNT (BEAKER) 2.69 M/ L 3.93-5.22 L (test code = 761) HEMOGLOBIN (BEAKER) (test code = 8.4 GM/DL 11.2-15.7 L 410) HEMATOCRIT (BEAKER) (test code = 25.9 % 34.1-44.9 L 411) MEAN CORPUSCULAR VOLUME (BEAKER) 96.3 fL 79.4-94.8 H (test code = 753) MEAN CORPUSCULAR HEMOGLOBIN 31.2 pg 25.6-32.2 (BEAKER) (test code = 751) MEAN CORPUSCULAR HEMOGLOBIN CONC 32.4 GM/DL 32.2-35.5 (BEAKER) (test code = 752) RED CELL DISTRIBUTION WIDTH 17.5 % 11.7-14.4 H (BEAKER) (test code = 412) PLATELET COUNT (BEAKER) (test 138 K/CU MM 150-450 L code = 756) MEAN PLATELET VOLUME (BEAKER) 10.4 fL 9.4-12.3 (test code = 754) NUCLEATED RED BLOOD CELLS 0 /100 WBC 0-0 (BEAKER) (test code = 413) NEUTROPHILS RELATIVE PERCENT 70 % (BEAKER) (test code = 429) LYMPHOCYTES RELATIVE PERCENT 20 % (BEAKER) (test code = 430) MONOCYTES RELATIVE PERCENT 6 % (BEAKER) (test code = 431) EOSINOPHILS RELATIVE PERCENT 3 % (BEAKER) (test code = 432) BASOPHILS RELATIVE PERCENT 1 % (BEAKER) (test code = 437) NEUTROPHILS ABSOLUTE COUNT 4.29 K/ L 1.56-6.13 (BEAKER) (test code = 670) LYMPHOCYTES ABSOLUTE COUNT 1.24 K/ L 1.18-3.74 (BEAKER) (test code = 414) MONOCYTES ABSOLUTE COUNT (BEAKER) 0.36 K/ L 0.24-0.36 (test code = 415) EOSINOPHILS ABSOLUTE COUNT 0.18 K/ L 0.04-0.36 (BEAKER) (test code = 416) BASOPHILS ABSOLUTE COUNT (BEAKER) 0.04 K/ L 0.01-0.08 (test code = 417) IMMATURE GRANULOCYTES-RELATIVE 1 % 0-1 PERCENT (BEAKER) (test code = 2801) POCT-GLUCOSE [id number] 00:04:00 Test Item Value Reference Range Interpretation Comments POC-GLUCOSE METER 95 mg/dL 70-110 : TESTED A T [facility] 6720 (BEAKER) (test code = [facility], 153) [address]: Gravel Roofer/Techni mindi ID = [id number] for Alicia Vuong POCT-GLUCOSE [id number] 16:53:00 Test Item Value Reference Range Interpretation Comments POC-GLUCOSE METER 92 mg/dL 70-110 : TESTED A T [facility] 6720 (BEAKER) (test code = [facility], 153) [address]: Gravel Roofer/Techni mindi ID = [id number] for MAURYA KATERIN (V), ROXANNE POCT-GLUCOSE [id number] 12:17:00 Test Item Value Reference Range Interpretation Comments POC-GLUCOSE METER 101 mg/dL 70-110 : TESTED A T [facility] 6720 (BEAKER) (test code = [facility], 153) [address]: Gravel Roofer/Techni mindi ID = [id number] for RAMESH ORTIZ (V), ROXANNE CBC W/PLT COUNT & AUTO [id number] 11:46:00 Test Item Value Reference Range Interpretation Comments WHITE BLOOD CELL COUNT (BEAKER) 5.7 K/ L 3.5-10.5 (test code = 775) RED BLOOD CELL COUNT (BEAKER) 2.49 M/ L 3.93-5.22 L (test code = 761) HEMOGLOBIN (BEAKER) (test code = 7.6 GM/DL 11.2-15.7 L 410) HEMATOCRIT (BEAKER) (test code = 23.1 % 34.1-44.9 L 411) MEAN CORPUSCULAR VOLUME (BEAKER) 92.8 fL 79.4-94.8 (test code = 753) MEAN CORPUSCULAR HEMOGLOBIN 30.5 pg 25.6-32.2 (BEAKER) (test code = 751) MEAN CORPUSCULAR HEMOGLOBIN CONC 32.9 GM/DL 32.2-35.5 (BEAKER) (test code = 752) RED CELL DISTRIBUTION WIDTH 17.8 % 11.7-14.4 H (BEAKER) (test code = 412) PLATELET COUNT (BEAKER) (test 112 K/CU MM 150-450 L code = 756) MEAN PLATELET VOLUME (BEAKER) 10.2 fL 9.4-12.3 (test code = 754) NUCLEATED RED BLOOD CELLS 0 /100 WBC 0-0 (BEAKER) (test code = 413) (CELLAVISION MANUAL DIFF)2021-05-13 11:46:00 Test Item Value Reference Range Interpretation Comments NEUTROPHILS - REL 75 % (CELLAVISION)(BEAKER) (test code = 2816) LYMPHOCYTES - REL 21 % (CELLAVISION)(BEAKER) (test code = 2817) EOSINOPHILS - REL 2 % (CELLAVISION)(BEAKER) (test code = 2819) BANDS - REL (CELLAVISION)(BEAKER) 2 % 0-10 (test code = 2826) NEUTROPHILS - ABS 4.28 K/ul 1.56-6.13 (CELLAVISION)(BEAKER) (test code = 2830) LYMPHOCYTES - ABS 1.20 K/ul 1.18-3.74 (CELLAVISION)(BEAKER) (test code = 2831) EOSINOPHILS - ABS 0.11 K/uL 0.04-0.36 (CELLAVISION)(BEAKER) (test code = 2834) BANDS - ABS (CELLAVISION)(BEAKER) 0.11 K/uL 0.00-0.80 (test code = 2840) TOTAL COUNTED (BEAKER) (test code = 100 1351) CLUMPED PLATELETS (BEAKER) (test Present code = 436) SMUDGE CELLS (BEAKER) (test code = Present 1371) GIANT PLATELETS (BEAKER) (test code Present = 313) POIKILOCYTES (BEAKER) (test code = 1+ few 966) NATALIE CELLS (BEAKER) (test code = 1+ few 474) ARTIFACT (CELLAVISION)(BEAKER) Present (test code = 3432) PLATELET CONCENTRATION Decreased (CELLAVISION)(BEAKER) (test code = 3438) Gravel Roofer ID - Kenyon Randolph comments: Slide comments:POCT-GLUCOSE [id number] 08:51:00 Test Item Value Reference Range Interpretation Comments POC-GLUCOSE METER 87 mg/dL 70-110 : TESTED A T [facility] 6720 (BEAKER) (test code = [place], 1538) [address]: Gravel Roofer/Techni mindi ID = [id number] for RAMÓN CONKLIN (Donna)ROXANNE COMPREHENSIVE METABOLIC [id number] 06:17:00 Test Item Value Reference Range Interpretation Comments TOTAL PROTEIN 4.3 gm/dL 6.0-8.3 L (BEAKER) (test code = 770) ALBUMIN (BEAKER) 2.1 g/dL 3.5-5.0 L (test code = 1145) ALKALINE PHOSPHATASE 308 U/L 40-150 H (BEAKER) (test code = 346) BILIRUBIN TOTAL 1.8 mg/dL 0.2-1.2 H (BEAKER) (test code = 377) SODIUM (BEAKER) (test 135 meq/L 136-145 L code = 381) POTASSIUM (BEAKER) 4.1 meq/L 3.5-5.1 (test code = 379) CHLORIDE (BEAKER) 110 meq/L 98-107 H (test code = 382) CO2 (BEAKER) (test 20 meq/L 22-29 L code = 355) BLOOD UREA NITROGEN 18 mg/dL 7-21 (BEAKER) (test code = 354) CREATININE (BEAKER) 0.63 mg/dL 0.57-1.25 (test code = 358) GLUCOSE RANDOM 80 mg/dL 70-105 (BEAKER) (test code = 652) CALCIUM (BEAKER) 7.7 mg/dL 8.4-10.2 L (test code = 697) AST (SGOT) (BEAKER) 75 U/L 5-34 H (test code = 353) ALT (SGPT) (BEAKER) 51 U/L 6-55 (test code = 347) EGFR (BEAKER) (test 90 mL/min/1.73 ESTIMA MEGHAN GFR IS code = 1092) sq m NOT ACCURATE CREATININE CLEARANCE IN PREDICTING GLOMERULAR FILTRATION RATE . ESTIMATED GFR I S NOT APPLICABLE FOR DIALYSIS PATIEN TS. Gravel Roofer ID - MARK [id number] 06:09:00 Test Item Value Reference Range Interpretation Comments MAGNESIUM (BEAKER) (test code = 1.7 mg/dL 1.6-2.6 627) Gravel Roofer ID - MARK [id number] 06:09:00 Test Item Value Reference Range Interpretation Comments PHOSPHORUS (BEAKER) (test code = 2.3 mg/dL 2.3-4.7 604) Gravel Roofer ID - MARK MHEMOGLOBIN AND [id number] 23:42:00 Test Item Value Reference Range Interpretation Comments HEMOGLOBIN (BEAKER) (test code = 7.2 GM/DL 11.2-15.7 L 410) HEMATOCRIT (BEAKER) (test code = 21.5 % 34.1-44.9 L 411) Gravel Roofer ID - [id number]-GLUCOSE [id number] 22:26:00 Test Item Value Reference Range Interpretation Comments POC-GLUCOSE METER 87 mg/dL 70-110 : TESTED A T [facility] 6720 (BEAKER) (test code = [facility], 1538) [id number]: Gravel Roofer/Techni mindi ID = [id number] for BISHOP , WILLY HEMOGLOBIN AND [id number] 18:23:00 Test Item Value Reference Range Interpretation Comments HEMOGLOBIN (BEAKER) (test code = 8.0 GM/DL 11.2-15.7 L 410) HEMATOCRIT (BEAKER) (test code = 24.2 % 34.1-44.9 L 411) Gravel Roofer ID - [id number] [id number] 16:44:00 Test Item Value Reference Range Interpretation Comments POC-GLUCOSE METER 81 mg/dL 70-110 : TESTED A T [facility] 6720 (BEAKER) (test code = [facility], 1538) [id number]: Gravel Roofer/Techni mindi ID = [id number] for YADITESFAYE BIRD HATFIELD, BELÉN HEMOGLOBIN AND [id number] 12:31:00 Test Item Value Reference Range Interpretation Comments HEMOGLOBIN (BEAKER) (test code = 8.6 GM/DL 11.2-15.7 L 410) HEMATOCRIT (BEAKER) (test code = 25.7 % 34.1-44.9 L 411) Gravel Roofer ID - [id number] [id number] 12:12:00 Test Item Value Reference Range Interpretation Comments POC-GLUCOSE METER 93 mg/dL 70-110 : TESTED A T [facility] 6720 (BEAKER) (test code = [facility], 153) [id number]: Gravel Roofer/Techni mindi ID = [id number] for YADI SO HATFIELD, BELÉN STOOL PATH [id number] 10:34:00 Test Item Value Reference Range Interpretation Comments PATHOGEN EXAM CHARGED (BEAKER) (test Done code = 2381) SHIGA TOXIN [id number] 09:22:00 Test Item Value Reference Range Interpretation Comments SHIGA TOXIN 1 (BEAKER) (test Not detected Not detected code = 2177) SHIGA TOXIN 2 (BEAKER) (test Not detected Not detected code = 2179) POCT-GLUCOSE [id number] 06:23:00 Test Item Value Reference Range Interpretation Comments POC-GLUCOSE METER 84 mg/dL 70-110 : TESTED A T [facility] 6720 (BEAKER) (test code = [place], 1538) [id number]: Gravel Roofer/Techni mindi ID = [id number] for JEN PELAEZ CBC W/PLT COUNT & AUTO [id number] 06:02:00 Test Item Value Reference Range Interpretation Comments WHITE BLOOD CELL COUNT 6.7 K/ L 3.5-10.5 (BEAKER) (test code = 775) RED BLOOD CELL COUNT 2.65 M/ L 3.93-5.22 L (BEAKER) (test code = 761) HEMOGLOBIN (BEAKER) 8.2 GM/DL 11.2-15.7 L (test code = 410) HEMATOCRIT (BEAKER) 24.6 % 34.1-44.9 L (test code = 411) MEAN CORPUSCULAR 92.8 fL 79.4-94.8 Discordant mcv VOLUME (BEAKER) (test result compared to code = 753) previous result , clinical correl ation required MEAN CORPUSCULAR 30.9 pg 25.6-32.2 HEMOGLOBIN (BEAKER) (test code = 751) MEAN CORPUSCULAR 33.3 GM/DL 32.2-35.5 HEMOGLOBIN CONC (BEAKER) (test code = 752) RED CELL DISTRIBUTION 17.5 % 11.7-14.4 H WIDTH (BEAKER) (test code = 412) PLATELET COUNT 122 K/CU MM 150-450 L (BEAKER) (test code = 756) MEAN PLATELET VOLUME 10.4 fL 9.4-12.3 (BEAKER) (test code = 754) NUCLEATED RED BLOOD 0 /100 WBC 0-0 CELLS (BEAKER) (test code = 413) (CELLAVISION MANUAL DIFF)2021-05-12 06:02:00 Test Item Value Reference Range Interpretation Comments NEUTROPHILS - REL 77 % (CELLAVISION)(BEAKER) (test code = 2816) LYMPHOCYTES - REL 17 % (CELLAVISION)(BEAKER) (test code = 2817) MONOCYTES - REL 2 % (CELLAVISION)(BEAKER) (test code = 2818) EOSINOPHILS - REL 1 % (CELLAVISION)(BEAKER) (test code = 2819) BASOPHILS - REL 1 % (CELLAVISION)(BEAKER) (test code = 2820) METAMYELOCYTES - REL 1 % 0-0 H (CELLAVISION)(BEAKER) (test code = 2821) PROMYELOCYTES - REL 1 % 0-0 H (CELLAVSION)(BEAKER) (test code = 2825) NEUTROPHILS - ABS 5.16 K/ul 1.56-6.13 (CELLAVISION)(BEAKER) (test code = 2830) LYMPHOCYTES - ABS 1.14 K/ul 1.18-3.74 L (CELLAVISION)(BEAKER) (test code = 2831) MONOCYTES - ABS 0.13 K/uL 0.24-0.36 L (CELLAVISION)(BEAKER) (test code = 2832) EOSINOPHILS - ABS 0.07 K/uL 0.04-0.36 (CELLAVISION)(BEAKER) (test code = 2834) BASOPHILS - ABS 0.07 K/uL 0.01-0.08 (CELLAVISION)(BEAKER) (test code = 2835) METAMYELOCYTES - ABS 0.07 K/uL 0.00-0.00 H (CELLAVISION)(BEAKER) (test code = 2836) PROMYELOCYTES - ABS 0.07 K/uL 0.00-0.00 H (CELLAVISION)(BEAKER) (test code = 2838) TOTAL COUNTED (BEAKER) (test code 100 = 1351) WBC MORPHOLOGY (BEAKER) (test Normal code = 487) PLT MORPHOLOGY (BEAKER) (test Normal code = 486) POLYCHROMATOPHILLIC RBCS(BEAKER) 1+ few (test code = 478) ANISOCYTOSIS (BEAKER) (test code 1+ few = 961) MICROCYTES (BEAKER) (test code = 1+ few 965) MACROCYTES (BEAKER) (test code = 1+ few 964) POIKILOCYTES (BEAKER) (test code 2+ moderate = 966) SPHEROCYTES (BEAKER) (test code = 2+ moderate 768) OVALOCYTES (BEAKER) (test code = 1+ few 477) NATALIE CELLS (BEAKER) (test code = 1+ few 474) ARTIFACT (CELLAVISION)(BEAKER) Present (test code = 3432) PLATELET CONCENTRATION Decreased (CELLAVISION)(BEAKER) (test code = 3438) Gravel Roofer ID - Isidro comments: Slide comments:COMPREHENSIVE METABOLIC PANEL 2021-05-12 05:07:00 Test Item Value Reference Range Interpretation Comments TOTAL PROTEIN 4.0 gm/dL 6.0-8.3 L (BEAKER) (test code = 770) ALBUMIN (BEAKER) 2.0 g/dL 3.5-5.0 L (test code = 1145) ALKALINE PHOSPHATASE 284 U/L 40-150 H (BEAKER) (test code = 346) BILIRUBIN TOTAL 2.8 mg/dL 0.2-1.2 H (BEAKER) (test code = 377) SODIUM (BEAKER) (test 140 meq/L 136-145 code = 381) POTASSIUM (BEAKER) 3.6 meq/L 3.5-5.1 (test code = 379) CHLORIDE (BEAKER) 114 meq/L 98-107 H (test code = 382) CO2 (BEAKER) (test 19 meq/L 22-29 L code = 355) BLOOD UREA NITROGEN 31 mg/dL 7-21 H (BEAKER) (test code = 354) CREATININE (BEAKER) 0.70 mg/dL 0.57-1.25 (test code = 358) GLUCOSE RANDOM 78 mg/dL 70-105 (BEAKER) (test code = 652) CALCIUM (BEAKER) 7.6 mg/dL 8.4-10.2 L (test code = 697) AST (SGOT) (BEAKER) 111 U/L 5-34 H (test code = 353) ALT (SGPT) (BEAKER) 69 U/L 6-55 H (test code = 347) EGFR (BEAKER) (test 80 mL/min/1.73 ESTIMA MEGHAN GFR IS code = 1092) sq m NOT ACCURATE CREATININE CLEARANCE IN PREDICTING GLOMERULAR FILTRATION RATE . ESTIMATED GFR I S NOT APPLICABLE FOR DIALYSIS PATIEN TS. Gravel Roofer ID - DIDIER WSpecimen slightly [id number] 05:02:00 Test Item Value Reference Range Interpretation Comments MAGNESIUM (BEAKER) (test code = 1.6 mg/dL 1.6-2.6 627) Gravel Roofer ID - DIDIER [id number] 05:02:00 Test Item Value Reference Range Interpretation Comments PHOSPHORUS (BEAKER) (test code = 2.1 mg/dL 2.3-4.7 L 604) Gravel Roofer ID - DIDIER WPOCT-GLUCOSE FFPTI Test Item Value Reference Range Interpretation Comments POC-GLUCOSE METER 116 mg/dL 70-110 H : TESTED A T [facility] 6720 (BEAKER) (test code = [facility], 1538) [id number]: Gravel Roofer/Techni mindi ID = [id number] for SYEDA TAYLOR HEMOGLOBIN AND [id number] 00:36:00 Test Item Value Reference Range Interpretation Comments HEMOGLOBIN (BEAKER) (test code = 8.1 GM/DL 11.2-15.7 L 410) HEMATOCRIT (BEAKER) (test code = 23.9 % 34.1-44.9 L 411) Gravel Roofer ID - [id number]-GLUCOSE [id number] 23:40:00 Test Item Value Reference Range Interpretation Comments POC-GLUCOSE METER 97 mg/dL 70-110 : TESTED A T [facility] (BEAKER) (test code = [facility], 1538) 62553: Gravel Roofer/Techni mindi ID = [id number] for JEN PELAEZ U/S, ABDOMINAL, [id number] 16:19:00Abdomen limited area? Add comment if clarification is needed.->Right upper quadrantReason for exam:->Evaluate for persistent cholecystitisShould this be performed at the bedside?->Yes [facility] 1940 Sex: FFINAL REPORT ULTRASOUND RIGHT UPPER QUADRANT OF THE ABDOMEN HISTORY: Cholecystitis COMPARISON: Ultrasound of 05/09/2021 TECHNIQUE: Real-time ultrasound of the right upper quadrant of the abdomen was performed. FINDINGS: There is increased hepatic echogenicity suggestive of diffuse hepatic parenchymal disease such as fatty infiltration. Hepatic length is 13.4 cm. No hepatic mass lesion is visualized. Gallbladder wall is thickened, measuring 5 mm in diameter. Minimal pericholecystic fluid is seen. Multiple shadowing gallstones are present in the gallbladder. A commonbile duct stent is present. The main portal vein is normal in caliber, measuring 10 mm. Portions ofthe pancreas were obscured by bowel gas. Trace right pleural effusion. No ascites. The right kidney is normal in size, contour, and echogenicity. The right kidney measures 9.3 cm in length. Slight prominence of the right renal pelvis, which may just be due to a normal extrarenal pelvis. No shadowing calculi. No renal mass lesion. No abnormalities are seen in the abdominal aorta, inferior vena cava, or hepatic veins. IMPRESSION: 1. Multiple gallstones in the gallbladder. Mild gallbladder wall thickening and trace pericholecystic fluid, which can be signs of cholecystitis. 2. Status post common bileduct stent placement. 3. Fatty liver. Signed: Salena Chamorro [facility] Verified Date/Time: 05/11/2021 16:19:15 Reading Location: [address] Transitional Reading Room HEMOGLOBIN AND HEMATOCRIT 2021-05-11 15:28:00 Test Item Value Reference Range Interpretation Comments HEMOGLOBIN (BEAKER) (test code = 6.2 GM/DL 11.2-15.7 L 410) HEMATOCRIT (BEAKER) (test code = 19.5 % 34.1-44.9 L 411) Gravel Roofer ID - [id number], ABDOMEN/KUB, 1 VIEW [id number] 11:10:00Reason for exam:->eval abdominal distention / abdominal pain [facility] : 1940 Sex: FFINAL REPORT ONE VIEW ABDOMEN HISTORY: Abdominal distention COMPARISON :CT abdomen of 05/08/2021 FINDINGS: 2 supine AP images of the abdomen were obtained. No dilated loopslarge or small intestine are identified. The stomach is gas-filled. There is a stent in the region of the common bile duct. There are degenerative changes in the spine. A right hip arthroplasty is present. Signed: Salena Chamorro [facility] Verified Date/Time: 05/11/2021 11:10:34 Reading Location: [address] Transitional Reading Room A. DIFFICILE GDH [id number] 10:51:00 Test Item Value Reference Range Interpretation Comments CDT TOXIN (test code Negative Negative = [id number]) CDT GDH ANTIGEN (test Negative Negative No ind ication of code = 1250499867) Clostridi um difficile infection and n o colonization. Discontinue ent aminata isolation and t herapy. Testing performed by [employer] Rapid Cassette Assay. For GDH, published sensitivity of the assay is 98.7% compared to cytotoxicity testing. For Toxin AB, published sensitivity is 87.8% and specificity 99.4% compared to cytotoxicity testing.Verification of kit performance was done by the [facility] Microbiology Lab prior to clinical use.VANCOMYCIN LEVEL, [id number] 10:42:00 Test Item Value Reference Range Interpretation Comments VANCOMYCIN TROUGH (BEAKER) (test 7.9 ug/mL 10.0-20.0 L code = 522) Gravel Roofer ID - ROSIANGVITAMIN B12 AND [id number] 10:11:00 Test Item Value Reference Range Interpretation Comments VITAMIN B12 1325 pg/mL 211-911 H (BEAKER) (test code = 774) FOLATE (BEAKER) 12.00 ng/mL See_Comment [Automated message] (test code = 362) The system which generated this result transmitted ref erence range: >=5.4. T he reference range was not used to interpr et this result as normal/abnormal . Gravel Roofer ID - [id number] ID - [id number] 10:00:00 Test Item Value Reference Range Interpretation Comments FERRITIN (BEAKER) (test code = 838.30 ng/mL 10.00-291.00 H 361) Gravel Roofer ID - [id number] W/PLT COUNT & AUTO [id number] 08:55:00 Test Item Value Reference Range Interpretation Comments WHITE BLOOD CELL COUNT (BEAKER) 8.9 K/ L 3.5-10.5 (test code = 775) RED BLOOD CELL COUNT (BEAKER) 2.18 M/ L 3.93-5.22 L (test code = 761) HEMOGLOBIN (BEAKER) (test code = 6.9 GM/DL 11.2-15.7 L 410) HEMATOCRIT (BEAKER) (test code = 22.1 % 34.1-44.9 L 411) MEAN CORPUSCULAR VOLUME (BEAKER) 101.4 fL 79.4-94.8 H (test code = 753) MEAN CORPUSCULAR HEMOGLOBIN 31.7 pg 25.6-32.2 (BEAKER) (test code = 751) MEAN CORPUSCULAR HEMOGLOBIN CONC 31.2 GM/DL 32.2-35.5 L (BEAKER) (test code = 752) RED CELL DISTRIBUTION WIDTH 16.7 % 11.7-14.4 H (BEAKER) (test code = 412) PLATELET COUNT (BEAKER) (test 165 K/CU MM 150-450 code = 756) MEAN PLATELET VOLUME (BEAKER) 10.4 fL 9.4-12.3 (test code = 754) NUCLEATED RED BLOOD CELLS 0 /100 WBC 0-0 (BEAKER) (test code = 413) (CELLAVISION MANUAL DIFF)2021-05-11 08:55:00 Test Item Value Reference Range Interpretation Comments NEUTROPHILS - REL 89 % (CELLAVISION)(BEAKER) (test code = 2816) LYMPHOCYTES - REL 6 % (CELLAVISION)(BEAKER) (test code = 2817) MONOCYTES - REL 1 % (CELLAVISION)(BEAKER) (test code = 2818) EOSINOPHILS - REL 1 % (CELLAVISION)(BEAKER) (test code = 2819) BASOPHILS - REL 1 % (CELLAVISION)(BEAKER) (test code = 2820) METAMYELOCYTES - REL 1 % 0-0 H (CELLAVISION)(BEAKER) (test code = 2821) BANDS - REL (CELLAVISION)(BEAKER) 1 % 0-10 (test code = 2826) NEUTROPHILS - ABS 7.92 K/ul 1.56-6.13 H (CELLAVISION)(BEAKER) (test code = 2830) LYMPHOCYTES - ABS 0.53 K/ul 1.18-3.74 L (CELLAVISION)(BEAKER) (test code = 2831) MONOCYTES - ABS 0.09 K/uL 0.24-0.36 L (CELLAVISION)(BEAKER) (test code = 2832) EOSINOPHILS - ABS 0.09 K/uL 0.04-0.36 (CELLAVISION)(BEAKER) (test code = 2834) BASOPHILS - ABS 0.09 K/uL 0.01-0.08 H (CELLAVISION)(BEAKER) (test code = 2835) METAMYELOCYTES - ABS 0.09 K/uL 0.00-0.00 H (CELLAVISION)(BEAKER) (test code = 2836) BANDS - ABS (CELLAVISION)(BEAKER) 0.09 K/uL 0.00-0.80 (test code = 2840) TOTAL COUNTED (BEAKER) (test code = 100 1351) WBC MORPHOLOGY (BEAKER) (test code Normal = 487) PLT MORPHOLOGY (BEAKER) (test code Normal = 486) ANISOCYTOSIS (BEAKER) (test code = 1+ few 961) MACROCYTES (BEAKER) (test code = 1+ few 964) ARTIFACT (CELLAVISION)(BEAKER) Present (test code = 3432) PLATELET CONCENTRATION Adequate (CELLAVISION)(BEAKER) (test code = 3438) Gravel Roofer ID - Katharina OverholtUser comments: Slide comments:POCT-GLUCOSE METER 2021-05-11 08:35:00 Test Item Value Reference Range Interpretation Comments POC-GLUCOSE METER 91 mg/dL 70-110 : TESTED A T [facility]20 (BEAKER) (test code = [facility], 1538) 78526: Gravel Roofer/Techni mindi ID = [id number] for SYEDA TRAN POCT-GLUCOSE [id number] 05:43:00 Test Item Value Reference Range Interpretation Comments POC-GLUCOSE METER 93 mg/dL 70-110 : TESTED A T [facility] (BEAKER) (test code = [facility], 1538) 01421: Gravel Roofer/Techni mindi ID = [id number] for Alicia Vunog COMPREHENSIVE METABOLIC [id number] 05:12:00 Test Item Value Reference Range Interpretation Comments TOTAL PROTEIN 4.4 gm/dL 6.0-8.3 L (BEAKER) (test code = 770) ALBUMIN (BEAKER) 2.1 g/dL 3.5-5.0 L (test code = 1145) ALKALINE PHOSPHATASE 308 U/L 40-150 H (BEAKER) (test code = 346) BILIRUBIN TOTAL 3.1 mg/dL 0.2-1.2 H (BEAKER) (test code = 377) SODIUM (BEAKER) (test 133 meq/L 136-145 L code = 381) POTASSIUM (BEAKER) 3.8 meq/L 3.5-5.1 (test code = 379) CHLORIDE (BEAKER) 107 meq/L 98-107 (test code = 382) CO2 (BEAKER) (test 21 meq/L 22-29 L code = 355) BLOOD UREA NITROGEN 26 mg/dL 7-21 H (BEAKER) (test code = 354) CREATININE (BEAKER) 0.76 mg/dL 0.57-1.25 (test code = 358) GLUCOSE RANDOM 96 mg/dL 70-105 (BEAKER) (test code = 652) CALCIUM (BEAKER) 7.7 mg/dL 8.4-10.2 L (test code = 697) AST (SGOT) (BEAKER) 148 U/L 5-34 H (test code = 353) ALT (SGPT) (BEAKER) 85 U/L 6-55 H (test code = 347) EGFR (BEAKER) (test 73 mL/min/1.73 ESTIMA MEGHAN GFR IS code = 1092) sq m NOT ACCURATE CREATININE CLEARANCE IN PREDICTING GLOMERULAR FILTRATION RATE . ESTIMATED GFR I S NOT APPLICABLE FOR DIALYSIS PATIEN TS. Gravel Roofer ID - DIDIER WSpecimen slightly [id number] 05:09:00 Test Item Value Reference Range Interpretation Comments MAGNESIUM (BEAKER) (test code = 1.6 mg/dL 1.6-2.6 627) Gravel Roofer ID - DIDIER [id number] 05:09:00 Test Item Value Reference Range Interpretation Comments PHOSPHORUS (BEAKER) (test code = 1.6 mg/dL 2.3-4.7 L 604) Gravel Roofer ID - DIDIER NICKOLASRON, TIBC, % SAT. (WITHOUT FERRITIN)2021-05-11 05:05:00 Test Item Value Reference Range Interpretation Comments IRON (BEAKER) (test code = 547) 100.0 ug/dL 40.0-160.0 TOTAL IRON BINDING CAPACITY 170 ug/dL 250-450 L (BEAKER) (test code = 769) IRON % SATURATION (2) (BEAKER) 59 % 20-55 H (test code = 2590) Gravel Roofer ID Cortney VELÁSQUEZ WPOCT-GLUCOSE [id number] 00:47:00 Test Item Value Reference Range Interpretation Comments POC-GLUCOSE METER 96 mg/dL 70-110 : TESTED A T [facility]20 (BEAKER) (test code = [facility], 1538) 94514: Gravel Roofer/Techni mindi ID = [id number] for Alicia Vuong POCT-GLUCOSE [id number] 16:49:00 Test Item Value Reference Range Interpretation Comments POC-GLUCOSE METER 80 mg/dL 70-110 : TESTED A T [facility] (BEAKER) (test code = [facility], 1538) 88013: Gravel Roofer/Techni mindi ID = [id number] for MUMTAZROBER RODRIGUEZ SYEDA POCT-GLUCOSE [id number] 11:48:00 Test Item Value Reference Range Interpretation Comments POC-GLUCOSE METER 82 mg/dL 70-110 : TESTED A T [facility] (BEAKER) (test code = [facility], 1538) 10137: Gravel Roofer/Techni mindi ID = [id number] for BELÉN GARCIA POCT-GLUCOSE [id number] 08:11:00 Test Item Value Reference Range Interpretation Comments POC-GLUCOSE METER 101 mg/dL 70-110 : TESTED A T [facility] (BEAKER) (test code = [facility], 1538) 89632: Gravel Roofer/Techni mindi ID = [id number] for KJ MORRISONA POCT-GLUCOSE [id number] 05:59:00 Test Item Value Reference Range Interpretation Comments POC-GLUCOSE METER 155 mg/dL 70-110 H : TESTED A T [facility]20 (BEAKER) (test code = [facility], 1538) 35783: Gravel Roofer/Techni mindi ID = [id number] for Alicia Chappell [id number] 04:28:00 Test Item Value Reference Range Interpretation Comments MAGNESIUM (BEAKER) (test code = 1.7 mg/dL 1.6-2.6 627) Gravel Roofer ID - MARK [id number] 04:28:00 Test Item Value Reference Range Interpretation Comments PHOSPHORUS (BEAKER) (test code = 3.8 mg/dL 2.3-4.7 604) Gravel Roofer ID - MARK MCOMPREHENSIVE METABOLIC [id number] 04:28:00 Test Item Value Reference Range Interpretation Comments TOTAL PROTEIN 5.3 gm/dL 6.0-8.3 L (BEAKER) (test code = 770) ALBUMIN (BEAKER) 2.6 g/dL 3.5-5.0 L (test code = 1145) ALKALINE PHOSPHATASE 423 U/L 40-150 H (BEAKER) (test code = 346) BILIRUBIN TOTAL 4.6 mg/dL 0.2-1.2 H (BEAKER) (test code = 377) SODIUM (BEAKER) (test 137 meq/L 136-145 code = 381) POTASSIUM (BEAKER) 4.0 meq/L 3.5-5.1 (test code = 379) CHLORIDE (BEAKER) 109 meq/L 98-107 H (test code = 382) CO2 (BEAKER) (test 19 meq/L 22-29 L code = 355) BLOOD UREA NITROGEN 21 mg/dL 7-21 (BEAKER) (test code = 354) CREATININE (BEAKER) 0.84 mg/dL 0.57-1.25 (test code = 358) GLUCOSE RANDOM 155 mg/dL 70-105 H (BEAKER) (test code = 652) CALCIUM (BEAKER) 8.3 mg/dL 8.4-10.2 L (test code = 697) AST (SGOT) (BEAKER) 252 U/L 5-34 H (test code = 353) ALT (SGPT) (BEAKER) 122 U/L 6-55 H (test code = 347) EGFR (BEAKER) (test 65 mL/min/1.73 ESTIMA MEGHAN GFR IS code = 1092) sq m NOT ACCURATE CREATININE CLEARANCE IN PREDICTING GLOMERULAR FILTRATION RATE . ESTIMATED GFR I S NOT APPLICABLE FOR DIALYSIS PATIEN TS. Gravel Roofer ID - MARK MSpecimen slightly ictericCBC W/PLT COUNT & AUTO [id number] 04:13:00 Test Item Value Reference Range Interpretation Comments WHITE BLOOD CELL COUNT (BEAKER) 13.8 K/ L 3.5-10.5 H (test code = 775) RED BLOOD CELL COUNT (BEAKER) 2.86 M/ L 3.93-5.22 L (test code = 761) HEMOGLOBIN (BEAKER) (test code = 8.9 GM/DL 11.2-15.7 L 410) HEMATOCRIT (BEAKER) (test code = 28.3 % 34.1-44.9 L 411) MEAN CORPUSCULAR VOLUME (BEAKER) 99.0 fL 79.4-94.8 H (test code = 753) MEAN CORPUSCULAR HEMOGLOBIN 31.1 pg 25.6-32.2 (BEAKER) (test code = 751) MEAN CORPUSCULAR HEMOGLOBIN CONC 31.4 GM/DL 32.2-35.5 L (BEAKER) (test code = 752) RED CELL DISTRIBUTION WIDTH 16.9 % 11.7-14.4 H (BEAKER) (test code = 412) PLATELET COUNT (BEAKER) (test 192 K/CU MM 150-450 code = 756) MEAN PLATELET VOLUME (BEAKER) 9.8 fL 9.4-12.3 (test code = 754) NUCLEATED RED BLOOD CELLS 0 /100 WBC 0-0 (BEAKER) (test code = 413) NEUTROPHILS RELATIVE PERCENT 91 % (BEAKER) (test code = 429) LYMPHOCYTES RELATIVE PERCENT 3 % (BEAKER) (test code = 430) MONOCYTES RELATIVE PERCENT 4 % (BEAKER) (test code = 431) EOSINOPHILS RELATIVE PERCENT 0 % (BEAKER) (test code = 432) BASOPHILS RELATIVE PERCENT 0 % (BEAKER) (test code = 437) NEUTROPHILS ABSOLUTE COUNT 12.56 K/ L 1.56-6.13 H (BEAKER) (test code = 670) LYMPHOCYTES ABSOLUTE COUNT 0.41 K/ L 1.18-3.74 L (BEAKER) (test code = 414) MONOCYTES ABSOLUTE COUNT (BEAKER) 0.60 K/ L 0.24-0.36 H (test code = 415) EOSINOPHILS ABSOLUTE COUNT 0.03 K/ L 0.04-0.36 L (BEAKER) (test code = 416) BASOPHILS ABSOLUTE COUNT (BEAKER) 0.03 K/ L 0.01-0.08 (test code = 417) IMMATURE GRANULOCYTES-RELATIVE 1 % 0-1 PERCENT (BEAKER) (test code = 2801) URINALYSIS W/ REFLEX URINE [id number] 01:58:00 Test Item Value Reference Range Interpretation Comments COLOR (BEAKER) (test code = 470) Yellow CLARITY (BEAKER) (test code = 469) Hazy SPECIFIC GRAVITY UA (BEAKER) (test 1.023 1.001-1.035 code = 468) PH UA (BEAKER) (test code = 467) 6.0 5.0-8.0 PROTEIN UA (BEAKER) (test code = 50 mg/dL Negative A 464) GLUCOSE UA (BEAKER) (test code = Negative Negative 365) KETONES UA (BEAKER) (test code = Negative Negative 371) BILIRUBIN UA (BEAKER) (test code = Positive Negative A 462) BLOOD UA (BEAKER) (test code = 461) Moderate Negative A NITRITE UA (BEAKER) (test code = Negative Negative 465) LEUKOCYTE ESTERASE UA (BEAKER) Large Negative A (test code = 466) UROBILINOGEN UA (BEAKER) (test code 0.2 mg/dL 0.2-1.0 = 463) RBC UA (BEAKER) (test code = 519) 1 /HPF WBC UA (BEAKER) (test code = 520) 44 /HPF BACTERIA (BEAKER) (test code = 517) None Seen SQUAMOUS EPITHELIAL (BEAKER) (test < /HPF code = 516) CRYSTALS, URINE (BEAKER) (test code Rare = 1521) SOURCE(BEAKER) (test code = 2795) Gravel Roofer ID - [auto]Gravel Roofer ID - techPOCT-GLUCOSE [id number] 21:00:00 Test Item Value Reference Range Interpretation Comments POC-GLUCOSE METER 190 mg/dL 70-110 H : TESTED A T [facility] (BEAKER) (test code = [facility], 1538) 81771: Gravel Roofer/Techni mindi ID = [id number] for Carmelo olivares Alicia POCT-GLUCOSE [id number] 17:47:00 Test Item Value Reference Range Interpretation Comments POC-GLUCOSE METER 114 mg/dL 70-110 H : TESTED A T [facility] (BEAKER) (test code = [facility], 153) 54865: Gravel Roofer/Techni mindi ID = [id number] for AL ONSO HATFIELD, BELÉN POCT-GLUCOSE [id number] 13:00:00 Test Item Value Reference Range Interpretation Comments POC-GLUCOSE METER 104 mg/dL 70-110 : TESTED A T [facility] (BEAKER) (test code = [facility], 153) 35157: Gravel Roofer/Techni mindi ID = [id number] for AL ONSO HATFIELD, BELÉN U/S, ABDOMINAL, [id number] 12:28:00Abdomen limited area? Add comment if clarification is needed.->Gall BladderReason for exam:->ABNORMAL LAB [facility] : 1940 Sex: FFINAL REPORT Abdominal ultrasound dated 05/09/2021 Comment: Real-time transabdominal ultrasound of the right upper quadrant abdomen was performed. Liver is normal in sizeand measures 15.4 cm in length. The echogenicity of the liver is normal. No focal lesion is noted in the liver. Gallbladder is distended. Wall thickening is seen involving the gallbladder with perich olecystic fluid collection. Gallbladder wall measures up to 8 mm in thickness. No gallstone is present. No biliary dilatation is seen. Common bile duct measures 7 mm in diameter. Main portal vein measures 17 mm in diameter. Pancreas is partially visualized. Right kidney measures 11.4 x 4.7 x 4.9 cm. Echogenicity of the right kidney is normal. No ascites is present in the abdomen. Abdominal aorta is normal in caliber. IVC and Hepatic veins are patent. Impression: Gallbladder wall thickening withpericholecystic fluid collection suggestive of acalculus cholecystitis. Signed: Elton Vaca MDReportVerified Date/Time: 05/09/2021 12:28:55 CBC W/PLT COUNT & AUTO [id number] 08:17:00 Test Item Value Reference Range Interpretation Comments WHITE BLOOD CELL COUNT (BEAKER) 15.3 K/ L 3.5-10.5 H (test code = 775) RED BLOOD CELL COUNT (BEAKER) 3.19 M/ L 3.93-5.22 L (test code = 761) HEMOGLOBIN (BEAKER) (test code = 10.0 GM/DL 11.2-15.7 L 410) HEMATOCRIT (BEAKER) (test code = 31.5 % 34.1-44.9 L 411) MEAN CORPUSCULAR VOLUME (BEAKER) 98.7 fL 79.4-94.8 H (test code = 753) MEAN CORPUSCULAR HEMOGLOBIN 31.3 pg 25.6-32.2 (BEAKER) (test code = 751) MEAN CORPUSCULAR HEMOGLOBIN CONC 31.7 GM/DL 32.2-35.5 L (BEAKER) (test code = 752) RED CELL DISTRIBUTION WIDTH 16.7 % 11.7-14.4 H (BEAKER) (test code = 412) PLATELET COUNT (BEAKER) (test 189 K/CU MM 150-450 code = 756) MEAN PLATELET VOLUME (BEAKER) 10.4 fL 9.4-12.3 (test code = 754) NUCLEATED RED BLOOD CELLS 0 /100 WBC 0-0 (BEAKER) (test code = 413) (CELLAVISION MANUAL DIFF)2021-05-09 08:17:00 Test Item Value Reference Range Interpretation Comments NEUTROPHILS - REL 99 % (CELLAVISION)(BEAKER) (test code = 2816) BANDS - REL (CELLAVISION)(BEAKER) 1 % 0-10 (test code = 2826) NEUTROPHILS - ABS 15.15 K/ul 1.56-6.13 H (CELLAVISION)(BEAKER) (test code = 2830) BANDS - ABS (CELLAVISION)(BEAKER) 0.15 K/uL 0.00-0.80 (test code = 2840) TOTAL COUNTED (BEAKER) (test code 100 = 1351) GIANT PLATELETS (BEAKER) (test Present code = 313) TOXIC GRANULATION (BEAKER) (test Present code = 771) ANISOCYTOSIS (BEAKER) (test code = 1+ few 961) PLATELET CONCENTRATION Adequate (CELLAVISION)(BEAKER) (test code = 3438) Gravel Roofer ID - Juliane Dyson comments: Slide comments:POCT-GLUCOSE METER 2021-05-09 07:31:00 Test Item Value Reference Range Interpretation Comments POC-GLUCOSE METER 99 mg/dL 70-110 : TESTED A T [facility] 6720 (BEAKER) (test code = [place], 1538) [id number]: Gravel Roofer/Techni mindi ID = [id number] for Miguelinau ntOma LACTIC ACID, [id number] 07:03:00 Test Item Value Reference Range Interpretation Comments LACTATE BLOOD VENOUS 1.73 mmol/L 0.50-2.20 Specime n slightly (2) (BEAKER) (test hemolyzed code = 2872) Gravel Roofer ID - DIDIER WSpecimecleveland slightly ictericRAD, CHEST, 1 VIEW, NON DEPT 2021-05-09 06:48:00Reason for exam:->ABNORMAL LABShould this be performed at the bedside?->Yes [facility] : 1940 Sex: FFINAL REPORT RAD, CHEST, 1 VIEW, NON DEPT CLINICAL HISTORY: ABNORMAL L AB TECHNIQUE: Single view of the chest. COMPARISON: Abnormal lab IMPRESSION:Right chest [id number] overlies the cavoatrial junction. Pulmonary calcified granulomata present.There are no focal consolidation or effusions. No pneumothorax. The cardiomediastinal silhouette is magnified by technique without acute finding. Right shoulder arthroplasty changes. Osseous degenerative changes are present.Signed: Paddy Parada MDReport Verified Date/Time: 05/09/2021 06:48:57 [id number] 05:15:00 Test Item Value Reference Range Interpretation Comments MAGNESIUM (BEAKER) (test code = 1.5 mg/dL 1.6-2.6 L 627) Gravel Roofer ID - DIDIER [id number] 05:15:00 Test Item Value Reference Range Interpretation Comments PHOSPHORUS (BEAKER) (test code = 2.5 mg/dL 2.3-4.7 604) Gravel Roofer ID - DIDIER WBASIC METABOLIC [id number] 05:15:00 Test Item Value Reference Range Interpretation Comments SODIUM (BEAKER) 133 meq/L 136-145 L (test code = 381) POTASSIUM (BEAKER) 3.6 meq/L 3.5-5.1 (test code = 379) CHLORIDE (BEAKER) 103 meq/L 98-107 (test code = 382) CO2 (BEAKER) (test 19 meq/L 22-29 L code = 355) BLOOD UREA NITROGEN 16 mg/dL 7-21 (BEAKER) (test code = 354) CREATININE (BEAKER) 0.76 mg/dL 0.57-1.25 (test code = 358) GLUCOSE RANDOM 97 mg/dL 70-105 (BEAKER) (test code = 652) CALCIUM (BEAKER) 8.8 mg/dL 8.4-10.2 (test code = 697) EGFR (BEAKER) (test 73 mL/min/1.73 ESTIMA MEGHAN GFR IS code = 1092) sq m NOT ACCURATE CREATININE CLEARANCE IN PREDICTING GLOMERULAR FILTRATION RATE . ESTIMATED GFR I S NOT APPLICABLE FOR DIALYSIS PATIEN TS. Gravel Roofer ID - DIDIER Erica slightly ictericHEPATIC FUNCTION [id number] 05:15:00 Test Item Value Reference Range Interpretation Comments TOTAL PROTEIN (BEAKER) (test code = 6.0 gm/dL 6.0-8.3 770) ALBUMIN (BEAKER) (test code = 1145) 3.0 g/dL 3.5-5.0 L BILIRUBIN TOTAL (BEAKER) (test code 5.0 mg/dL 0.2-1.2 H = 377) BILIRUBIN DIRECT (BEAKER) (test 4.0 mg/dL 0.1-0.5 H code = 706) ALKALINE PHOSPHATASE (BEAKER) (test 583 U/L 40-150 H code = 346) AST (SGOT) (BEAKER) (test code = 460 U/L 5-34 H 353) ALT (SGPT) (BEAKER) (test code = 159 U/L 6-55 H 347) Gravel Roofer ID - DIDIER Erica slightly ictericPROTHROMBIN [id number] 05:04:00 Test Item Value Reference Range Interpretation Comments PROTIME (BEAKER) 13.8 seconds 11.9-14.2 (test code = 759) INR (BEAKER) (test 1.08 See_Comment [Automat ed message] code = 370) The system [employer] generated this result transmitted ref erence range: <=5.90. The reference range was not used to int erpret this result as normal/abnormal . RECOMMENDED COUMADIN/WARFARIN INR THERAPY RANGESSTANDARD DOSE: 2.0 - 3.0 Includes: PROPHYLAXIS forvenous thrombosis, systemic embolization; TREATMENT for venous thrombosis and/or pulmonary embolus.HIGH RISK: Target INR is 2.5-3.5 for patients with mechanical heart valves.SARS-COV2/RT-PCR ([facility]) 2021-05-09 03:08:00 Test Item Value Reference Range Interpretation Comments SARS-COV2/RT-PCR (test Negative Not Detected, Negative, code = 4173365) See external report for linked test SARS-COV-2 PERFORMING LAB [facility] (test code = 7954184) Negative result for this test determines that SARS-CoV-2 RNA was not present in the specimen above the Limit of Detection (LOD). However, Negative results do not preclude SARS-CoV-2 infection and should not be used as the sole basis for treatment or patient management decisions. Negative results mustbe combined with clinical observations, patient history, and epidemiological information. A false negative result may occur if a specimen is improperly collected, transported or handled. A false negative result should be considered if patient's recent exposures or clinical presentation indicate that COVID-19 (SARS-CoV-2) is likely and diagnostic tests for other causes of illness are negative. Re-testing should be considered in cases of suspected false negatives.The limit of detection for this assay is 800 copies/mL.This SARS CoV-2 test is a real-time RT-PCR test intended for the qualitative detection of nucleic acid from SARS-CoV-2 in a nasopharyngeal swab specimen collected from individuals susp ected of COVID-19 by their healthcare provider.This test has not been Food and Drug Administration (FDA) cleared or approved. This is a modified version of an approved Emergency Use Authorization (EUA) and is in the process of review by the FDA. Once authorized by the FDA, the issued EUA will be effective until the declaration that circumstances exist justifying the authorization of the emergency use of in vitro diagnostic tests for detection and/or diagnosis of COVID-19 is terminated under Section 564(b)(2) of the Act or the EUA is revoked under Section 564(g) of the Act.Fact Sheet for Healthcare Providers:https://www.[employer]/sites/default/files/product/documents/Fact_Andrea mckeone_VR_Zshwhcake_Wnxs_GMNJ-CcQ-3.pdfFact Sheet for Healthcare Patients:https://www.[employer]/sites/default/files/product/ documents/Vztx_Dkqoy_Agupvczt_Kmua_SAEN-OfW-3.pdfPerforming Laboratory:[facility], [place] [address]XO, [id number] 00:47:00Unlisted Reason for Exam - Click Yes and Enter Reason Below- >YesUnlisted Reason for Exam->abd pain, hx of stomach cancerWill this procedure require oral contrast?->No [facility] : 1940 Sex: FFINAL REPORT CT, ABDOMEN \T\ PELVIS, WITH IV CONTRAST CLINICAL HISTORY : Unlisted Reason for Examabd pain, hx of stomach cancer TECHNIQUE: Multiple axial images of the abdomen and pelvis were performed after the uncomplicated administration of IV contrast. Coronal and sagittal reformats obtained. Oral contrast was not administered. This exam was performed according to our departmental dose-optimization program, which includes automated exposure control, adjustment of the mA and/or kV according to patient size and/or use of the iterative reconstruction technique. COMPARISON:None. FINDINGS:LOWER CHEST:Basilar calcified granuloma. Pulmonary streaky opacities noted. HEPATO BILIARY: Mild periportal edema. There is pericholecystic fluid with suspected gallbladder wall thickening. There is subhepatic fluid with common bile duct wall enhancement without abnormal distention.PANCREAS: No acute findings. SPLEEN: No acute findings.ADRENAL GLANDS: Unremarkable right adrenal gland. Left suprarenal complex collection described below may obscure or replace the left adrenal gland.KIDNEYS URETERS: Left kidney displaced inferiorly by the complex collection described below. Right kidney extrarenal pelvis. Bilateral cortical lucencies to small to characterize. No hydronephrosis.URINARY BLADDER: Distended urinary bladderREPRODUCTIVE ORGANS: No acute findings. GASTROINTESTINAL/MESENTER Y/PERITONEUM/RETROPERITONEUM: Distal esophageal and gastroesophageal junction wall thickening and edema and perigastric stranding. Gastrohepatic prominent lymph nodes are noted. Complex collection measuring greater than simple fluid density abuts the greater curvature the stomach and displaces the pancreatic tail anteriorly, measuring 8.3 x 5.6 x 7.1 cm. No bowel obstruction. There is wall thickeningof the proximal duodenum with surrounding inflammatory changes and nathanael hepatis prominent lymph nodes. Moderate fecal burden. Scattered colonic diverticulosis. VESSELS: Moderate atherosclerotic disease. No abdominal aortic aneurysm.SOFT TISSUES: No acute findings.BONES: Right hip arthroplasty produces streak artifact obscuring pelvic structures. Left hip degenerative joint disease. L4-5 grade 1 degenerative spinal listhesis with severe central spinal canal stenosis. Moderate to severe multilevel lumbar spondylosis.. IMPRESSION:Gastroesophageal junction wall thickening and inflammatory changes compatible with history of carcinoma likely with posttreatment inflammatory changes. Reactive versus metastatic gastrohepatic lymph nodes are present. Proximal duodenum wall thickening, perienteric inflammatory changes, subhepatic fluid, suspected gallbladder wall thickening and common bile duct enhancement associated with nathanael hepatis prominent lymph nodes. Findings consistent with cholangitis, duodenitis and suspected acute cholecystitis with indeterminate primary etiology. Left suprarenal complex collection measuring 8.3 x 5.6 x 7.1 cm may represent a large adrenal hematoma versus necrotic mass or pseudocyst. Signed: Paddy Parada MDReport Verified Date/Time: 05/09/2021 00:47:50 HIGH SENSITIVITY TROPONIN [id number] 20:19:00 Test Item Value Reference Range Interpretation Comments HIGH SENSITIVITY 8 pg/ml See_Comment [Automated message] TROPONIN I (test code = The system which [id number]) generated this result transmitted ref erence range: <=17. Th e reference range was not used to interpr et this result as normal/abnormal . Gravel Roofer ID - DBThe SCOREBOARD OPERATOR STAT High Sensitivity Troponin-I results should be used in conjunctionwith other diagnostic information such as ECG, clinical observations and information, and patient symptoms to aid in the diagnosis of [place].BASIC METABOLIC [id number] 20:12:00 Test Item Value Reference Range Interpretation Comments SODIUM (BEAKER) 132 meq/L 136-145 L (test code = 381) POTASSIUM (BEAKER) 4.0 meq/L 3.5-5.1 (test code = 379) CHLORIDE (BEAKER) 101 meq/L 98-107 (test code = 382) CO2 (BEAKER) (test 21 meq/L 22-29 L code = 355) BLOOD UREA NITROGEN 16 mg/dL 7-21 (BEAKER) (test code = 354) CREATININE (BEAKER) 0.74 mg/dL 0.57-1.25 (test code = 358) GLUCOSE RANDOM 93 mg/dL 70-105 (BEAKER) (test code = 652) CALCIUM (BEAKER) 9.4 mg/dL 8.4-10.2 (test code = 697) EGFR (BEAKER) (test 75 mL/min/1.73 ESTIMA MEGHAN GFR IS code = 1092) sq m NOT ACCURATE CREATININE CLEARANCE IN PREDICTING GLOMERULAR FILTRATION RATE . ESTIMATED GFR I S NOT APPLICABLE FOR DIALYSIS PATIEN TS. Gravel Roofer ID - DBSpecimen slightly ictericHEPATIC FUNCTION [id number] 20:12:00 Test Item Value Reference Range Interpretation Comments TOTAL PROTEIN (BEAKER) (test code = 6.7 gm/dL 6.0-8.3 770) ALBUMIN (BEAKER) (test code = 1145) 3.3 g/dL 3.5-5.0 L BILIRUBIN TOTAL (BEAKER) (test code 4.8 mg/dL 0.2-1.2 H = 377) BILIRUBIN DIRECT (BEAKER) (test 3.8 mg/dL 0.1-0.5 H code = 706) ALKALINE PHOSPHATASE (BEAKER) (test 611 U/L 40-150 H code = 346) AST (SGOT) (BEAKER) (test code = 532 U/L 5-34 H 353) ALT (SGPT) (BEAKER) (test code = 174 U/L 6-55 H 347) Gravel Roofer ID - DBSpecimen slightly [id number] 20:12:00 Test Item Value Reference Range Interpretation Comments LIPASE (BEAKER) (test code = 749) 70 U/L 8-78 Gravel Roofer ID - DBSpecimen slightly [id number] 20:09:00 Test Item Value Reference Range Interpretation Comments PARTIAL THROMBOPLASTIN TIME 31.3 seconds 22.5-36.0 (BEAKER) (test code = 760) PROTHROMBIN [id number] 20:08:00 Test Item Value Reference Range Interpretation Comments PROTIME (BEAKER) 13.2 seconds 11.9-14.2 (test code = 759) INR (BEAKER) (test 1.02 See_Comment [Automat ed message] code = 370) The system [employer] generated this result transmitted ref erence range: <=5.90. The reference range was not used to int erpret this result as normal/abnormal . RECOMMENDED COUMADIN/WARFARIN INR THERAPY RANGESSTANDARD DOSE: 2.0 - 3.0 Includes: PROPHYLAXIS forvenous thrombosis, systemic embolization; TREATMENT for venous thrombosis and/or pulmonary embolus.HIGH RISK: Target INR is 2.5-3.5 for patients with mechanical heart valves.CBC W/PLT COUNT & AUTO DIFFERENTIAL 2021-05-08 19:55:00 Test Item Value Reference Range Interpretation Comments WHITE BLOOD CELL COUNT (BEAKER) 6.6 K/ L 3.5-10.5 (test code = 775) RED BLOOD CELL COUNT (BEAKER) 3.05 M/ L 3.93-5.22 L (test code = 761) HEMOGLOBIN (BEAKER) (test code = 9.7 GM/DL 11.2-15.7 L 410) HEMATOCRIT (BEAKER) (test code = 30.3 % 34.1-44.9 L 411) MEAN CORPUSCULAR VOLUME (BEAKER) 99.3 fL 79.4-94.8 H (test code = 753) MEAN CORPUSCULAR HEMOGLOBIN 31.8 pg 25.6-32.2 (BEAKER) (test code = 751) MEAN CORPUSCULAR HEMOGLOBIN CONC 32.0 GM/DL 32.2-35.5 L (BEAKER) (test code = 752) RED CELL DISTRIBUTION WIDTH 16.7 % 11.7-14.4 H (BEAKER) (test code = 412) PLATELET COUNT (BEAKER) (test 177 K/CU MM 150-450 code = 756) MEAN PLATELET VOLUME (BEAKER) 10.0 fL 9.4-12.3 (test code = 754) NUCLEATED RED BLOOD CELLS 0 /100 WBC 0-0 (BEAKER) (test code = 413) NEUTROPHILS RELATIVE PERCENT 75 % (BEAKER) (test code = 429) LYMPHOCYTES RELATIVE PERCENT 11 % (BEAKER) (test code = 430) MONOCYTES RELATIVE PERCENT 10 % (BEAKER) (test code = 431) EOSINOPHILS RELATIVE PERCENT 2 % (BEAKER) (test code = 432) BASOPHILS RELATIVE PERCENT 1 % (BEAKER) (test code = 437) NEUTROPHILS ABSOLUTE COUNT 4.95 K/ L 1.56-6.13 (BEAKER) (test code = 670) LYMPHOCYTES ABSOLUTE COUNT 0.75 K/ L 1.18-3.74 L (BEAKER) (test code = 414) MONOCYTES ABSOLUTE COUNT (BEAKER) 0.67 K/ L 0.24-0.36 H (test code = 415) EOSINOPHILS ABSOLUTE COUNT 0.11 K/ L 0.04-0.36 (BEAKER) (test code = 416) BASOPHILS ABSOLUTE COUNT (BEAKER) 0.05 K/ L 0.01-0.08 (test code = 417) IMMATURE GRANULOCYTES-RELATIVE 1 % 0-1 PERCENT (BEAKER) (test code = 2801) CBC with [id number] 22:27:00 Test Item Value Reference Range Interpretation Comments WBC (test code = WBC) 5.4 K/cumm 4.4-10.5 N RBC (test code = RBC) 4.15 M/cumm 3.75-5.20 N Hemoglobin (test code = 13.5 gm/dL 12.2-14.8 N HGB) Hematocrit (test code = 42.6 % 36.5-44.4 N HCT) MCV (test code = MCV) 102.8 fL 80-100 H MCH (test code = MCH) 32.6 pg 27.0-32.5 H MCHC (test code = MCHC) 31.7 g/dL 32.0-37.5 L RDW (test code = RDW) 12.8 % 11.5-14.5 N Platelet Count (test 256 K/cumm 140-440 N code = PLTCT) MPV (test code = MPV) 9.3 fL Diff Method (test code Manual = DIFFM) Neutrophil (test code = 57.0 % 36-70 N NEUT) Lymphocyte (test code = 30.0 % 12-44 N LYMPH) Monocyte (test code = 7.0 % 0-11 N MONO) Eosinophil (test code = 5.0 % 0-7 N EOS) Basophil (test code = 1.0 % 0-2 N BASO) Neutro Abs (test code = 3.1 K/cumm 1.6-7.4 N ANEUT) Lymph Abs (test code = 1.6 K/cumm 0.5-4.6 N ALYMPH) [place]air Abs (test code = 0.4 K/cumm 0.0-1.2 N AMONO) Eos Abs (test code = 0.27 K/cumm 0.00-0.74 N AEOS) Baso Abs (test code = 0.1 K/cumm 0.00-0.21 N ABASO) RBC Morphology (test Slight Macrocytosis code = RBCMRPH) Macrocytosis (test code Slight = MACRO) Platelet Est (test code Adequate Platelets on = PLTEST) Smear D-Dimer, [id number] 21:39:00 Test Item Value Reference Range Interpretation Comments D-Dimer, Quant (test code = DDQNT) 2327 ng/mL 0-500 H Lipid [id number] 20:34:00 Test Item Value Reference Range Interpretation Comments Cholesterol (test 191 mg/dL 0-200 N code = CHOL) Triglycerides (test 187 mg/dL 9-200 N code = TRIG) HDL (test code = 43 mg/dL 50-60 L HDL) Chol/HDL (test code 4.4 Ratio 0.0-4.4 N = CHOLPHDL) LDL, Calculated 111 0-130 N (NOTE)RISK O F HEART (test code = LDLC) DISEASEPu blished by [place] Of [place] Heart AssociationAnal yte Optim al Boderline Increased RiskC HOL <200 200-239 >240TRI G <150 150-199 >200HDL Male: >60 <40HDL Female: >60 <50 LDL < 100 130-15 9 >160 LDL NEAR OPTIMAL IS 100- 129 VLDL (test code = 37 mg/dL 5-40 N VLDL) LDL/HDL (test code = 3 LDLPHDL) [id number] 20:34:00 Test Item Value Reference Range Interpretation Comments NT ProBnp (test code = PBNP) 120 pg/mL 0-449 N Comprehensive Metabolic [id number] 20:34:00 Test Item Value Reference Range Interpretation [...] ars ofage have not been validated by e MDRD study and genesis dior be interpretedwith caution.eGFR Re sult Interpretation: eGFR > or = 60 is in t he Normal RangeeGF R < 60 may mean kidney diseaseeGFR < 1 5 may mean kidney failureRange s recommended by the National Kidney Foundation,http ://nkd ep.nih.gov
[2021-09-16 11:21] VITALS: BMI 22.3
[2021-09-16] MEDS ORDERED: ONDANSETRON 4 MG (ODT) TAB PO PRN (12:39)
[2021-09-16] MEDS ORDERED: MORPHINE 2 MG/ML SYR IV PRN (12:40)
[2021-09-16] MEDS ORDERED: ACETAMINOPHEN 500 MG TAB PO PRN (12:40)
[2021-09-16] MEDS: NA CHLORIDE 0.9% 1,000 ML IV SCH (13:23)
[2021-09-16] MEDS: ONDANSETRON 4 MG/2 ML VIAL IV PRN (17:47)
[2021-09-16] MEDS: LATANOPROST 0.005% 2.5ML OPTH OPTH SCH (21:11)
[2021-09-17] MEDS: NA CHLORIDE 0.9% 1,000 ML IV SCH ×2 (03:18→15:53)
[2021-09-17 03:43] LABS: Basophils % 0.5 % (0-1.3); Hematocrit 28.4 % (36.0-45.0); Lymphocytes % 17.4 % (15.3-44.8); MPV 8.5 fL (7.6-11.3); RBC Red Blood Cell Count 3.03 M/uL (3.86-4.86)
[2021-09-17 03:47] LABS: Protime INR 1.21
[2021-09-17 03:53] LABS: Albumin 2.5 g/dL (3.4-5.0); Potassium 3.6 mmol/L (3.5-5.1); Protein, Total 5.6 g/dL (6.4-8.2)
[2021-09-17] MEDS: VITAMIN B COMPLEX 1 CAP PO SCH (08:17)
[2021-09-17] MEDS: ISOSORBIDE MONO SR 60 MG TAB PO SCH (08:17)
[2021-09-17] MEDS: GABAPENTIN 300 MG CAP PO SCH (08:17)
[2021-09-17] MEDS: LOSARTAN POTASSIUM 50 MG TABLET PO SCH (08:17)
[2021-09-17] MEDS: METOPROLOL XL 25 MG TAB PO SCH (08:18)
--- NOTE | 2021-09-17 09:46 | P.HP ---
Certification for Inpatient Patient admitted to: Inpatient With expected LOS: >2 Midnights Patient will require the following post-hospital care: None Practitioner: I am a practitioner with admitting privileges, knowledge of patient current condition, hospital course, and medical plan of care. Services: Services provided to patient in accordance with Admission requirements found in Title 42 Section 412.3 of the Code of Federal Regulations Patient History Date of Service: 09/16/21 Reason for admission: Dysphagia History of Present Illness: Patient is an 81-year-old female came to the hospital with difficulty swallowing. Patient has been diagnosed with gastroesophageal malignancy. Patient has been getting therapy for this. However, over the last 10 days whenever she drinks or eats anything she has to vomit shortly after. She feels like nothing is moving down past her esophagus. She came to the hospital for further evaluation. Patient is malnourished. Patient will be admitted for further evaluation. We will also get GI consultation as well as speech therapy evaluation. Patient will probably need a PEG tube and she is agreeable. Allergies clopidogrel [From Plavix] Allergy (Verified 12/23/20 20:54) Rash meperidine [From Demerol] Allergy (Verified 12/23/20 20:54) Rash Home Medications: Isosorbide Mononitrate [Isosorbide Mononitrate ER] 60 mg PO DAILY 12/23/20 Latanoprost/Pf [Latanoprost 0.005% Eye Drop] 1 drop EACH EYE BEDTIME 12/23/20 Losartan Potassium 100 mg PO DAILY 12/23/20 Vitamin B Complex [B Complex] 1 tab PO DAILY 12/23/20 Apixaban [Eliquis] 1 tab PO BID 09/16/21 Azithromycin 1 tab PO DAILY 09/16/21 Cefuroxime Axetil [Cefuroxime] 1 tab PO BID 09/16/21 Gabapentin 1 tab PO DAILY 09/16/21 Metoprolol Succinate 12.5 mg PO DAILY 09/16/21 Ondansetron [Zofran (Odt)*] 1 tab PO Q4HP PRN 09/16/21 - Past Medical/Surgical History Has patient received pneumonia vaccine in the past: Yes Diabetic: No -: Hypertension -: High Cholesterol -: Cancer of the Esophagus -: Diverticulitis -: h/o anemia -: right Shoulder Replacement -: HIp Replacement -: Colon Resection - Family History Mother Medical History: Diabetes Father Medical History: Other (see notes) Notes: thyroid disease - Social History Smoking Status: Former smoker Alcohol use: No CD- Drugs: No Caffeine use: No Place of Residence: Home Review of Systems 10-point ROS is otherwise unremarkable Physical Examination - Vital Signs Temperature: 97.3 F Blood Pressure: 123/58 Pulse: 65 Respirations: 18 Pulse Ox (%): 95 - Physical Exam General: Alert, In no apparent distress, Oriented x3 HEENT: Atraumatic, PERRLA, Mucous membr. moist/pink, EOMI, Sclerae nonicteric Neck: Supple, 2+ carotid pulse no bruit, No LAD, Without JVD or thyroid abnormality Respiratory: Clear to auscultation bilaterally, Normal air movement Cardiovascular: Regular rate/rhythm, Normal S1 S2, No murmurs Gastrointestinal: Normal bowel sounds, Soft and benign, Non-distended, No tenderness Musculoskeletal: No clubbing, No swelling, No tenderness Integumentary: No rashes Neurological: Normal gait, Normal speech, Normal strength at 5/5 x4 extr, Normal tone, Sensation intact, Cranial nerves 3-12 intact, Normal affect Lymphatics: No axilla or inguinal lymphadenopathy - Studies Laboratory Data (last 24 hrs) 09/17/21 03:15: Sodium 145, Potassium 3.6, BUN 13, Creatinine 0.67, Glucose 84, Total Bilirubin 1.0, AST 21, ALT 15, Alkaline Phosphatase 62 09/17/21 03:15: PT 13.9 H, INR 1.21, APTT 28.9 09/17/21 03:15: WBC 5.80, Hgb 9.4 L, Hct 28.4 L, Plt Count 167 Assessment & Plan - Problems (Diagnosis) (1) Dysphagia Current Visit: Yes Status: Acute (2) Gastroesophageal cancer Current Visit: Yes Status: Acute (3) Malnourished Current Visit: Yes Status: Acute (4) HLD (hyperlipidemia) Current Visit: No Status: Chronic Qualifiers: (5) HTN (hypertension) Current Visit: No Status: Chronic - Plan Plan: 1. GI consultation 2. Speech therapy consultation 3. Monitor labs 4. IV hydration 5. Oncology consultation 6. GI and DVT prophylaxis Discharge Plan: Home - Advance Directives Does patient have a Living Will: Yes Does patient have a Durable POA for Healthcare: Yes - Code Status/Comfort Care Code Status Assessed: Yes Code Status: Full Code Critical Care: No Time Spent Managing PTS Care (In Minutes): 45
--- NOTE | 2021-09-17 09:48 | P.PN ---
Subjective Date of Service: 09/17/21 Patient denies any new complaints. Patient unable to swallow. Patient will get EGD and possible PEG tube placement. Spoke with GI doctor as well. Review of Systems 10-point ROS is otherwise unremarkable Physical Examination - Vital Signs Temperature: 97.3 F Blood Pressure: 123/58 Pulse: 65 Respirations: 18 Pulse Ox (%): 95 - Physical Exam General: Alert, In no apparent distress, Oriented x3 Respiratory: Clear to auscultation bilaterally, Normal air movement Cardiovascular: Regular rate/rhythm, Normal S1 S2 Gastrointestinal: Normal bowel sounds, No tenderness Musculoskeletal: No tenderness Integumentary: No rashes Neurological: Normal speech, Normal tone, Normal affect Lymphatics: No axilla or inguinal lymphadenopathy - Studies Laboratory Data (last 24 hrs) 09/17/21 03:15: Sodium 145, Potassium 3.6, BUN 13, Creatinine 0.67, Glucose 84, Total Bilirubin 1.0, AST 21, ALT 15, Alkaline Phosphatase 62 09/17/21 03:15: PT 13.9 H, INR 1.21, APTT 28.9 09/17/21 03:15: WBC 5.80, Hgb 9.4 L, Hct 28.4 L, Plt Count 167 Medications List Reviewed: Yes Assessment & Plan - Problems (Diagnosis) (1) Dysphagia Current Visit: Yes Status: Acute (2) Gastroesophageal cancer Current Visit: Yes Status: Acute (3) Malnourished Current Visit: Yes Status: Acute (4) HLD (hyperlipidemia) Current Visit: No Status: Chronic Qualifiers: (5) HTN (hypertension) Current Visit: No Status: Chronic - Plan Plan: Continue with plan of care as mentioned below: 1. GI consultation pending 2. Speech therapy consultation 3. Monitor labs 4. IV hydration 5. Oncology consultation 6. GI and DVT prophylaxis Discharge Plan: Home Plan to discharge in: Greater than 2 days - Advance Directives Does patient have a Living Will: Yes Does patient have a Durable POA for Healthcare: Yes - Code Status/Comfort Care Code Status: Full Code Critical Care: No Time Spent Managing PTS Care (In Minutes): 35
[2021-09-17] MEDS: D5 0.9 NS 1,000 ML IV SCH (17:40)
[2021-09-17] MEDS: ENOXAPARIN 60 MG/0.6 ML SQ SCH (17:40)
[2021-09-17] MEDS: LATANOPROST 0.005% 2.5ML OPTH OPTH SCH (21:20)
[2021-09-18] MEDS: D5 0.9 NS 1,000 ML IV SCH ×2 (06:48→20:17)
[2021-09-18] MEDS ORDERED: CEFAZOLIN/NS 1gm 1 GM/50 ML BAG IVPB ONE (08:48)
[2021-09-18] MEDS: VITAMIN B COMPLEX 1 CAP PO SCH (09:00)
[2021-09-18] MEDS: METOPROLOL XL 25 MG TAB PO SCH (09:00)
[2021-09-18] MEDS: ENOXAPARIN 60 MG/0.6 ML SQ SCH ×3 (09:00→21:00)
[2021-09-18] MEDS: GABAPENTIN 300 MG CAP PO SCH (09:00)
[2021-09-18] MEDS: LOSARTAN POTASSIUM 50 MG TABLET PO SCH (09:00)
[2021-09-18] MEDS: ISOSORBIDE MONO SR 60 MG TAB PO SCH (09:00)
--- NOTE | 2021-09-18 09:14 | P.PN ---
Date of Service: 09/18/21 Subjective Patient unable to get PEG tube placement at this time. Some minor bleeding. Consult general surgery Review of Systems 10-point ROS is otherwise unremarkable Physical Examination - Vital Signs Reviewed - Physical Exam General: Alert, In no apparent distress, Oriented x3 Respiratory: Clear to auscultation bilaterally, Normal air movement Cardiovascular: Regular rate/rhythm, Normal S1 S2 Gastrointestinal: Normal bowel sounds, No tenderness Neurological: Normal speech, Normal tone, Normal affect Assessment & Plan - Problems (Diagnosis) (1) Dysphagia Current Visit: Yes Status: Acute (2) Gastroesophageal cancer Current Visit: Yes Status: Acute (3) Malnourished Current Visit: Yes Status: Acute (4) HLD (hyperlipidemia) Current Visit: No Status: Chronic Qualifiers: (5) HTN (hypertension) Current Visit: No Status: Chronic - Plan Plan: Continue with plan of care as mentioned below: 1. GI consultation appreciated; unable to get PEG tube placed. Will get General surgery consultation 2. Speech therapy consultation appreciated 3. Monitor labs 4. IV hydration 5. Oncology consultation appreciated 6. GI and DVT prophylaxis
[2021-09-18] MEDS ORDERED: Ringers Lactate 1,000 ML IV ONE (12:20)
[2021-09-18] MEDS ORDERED: LIDOCAINE 1% MPF 2 ML AMPULE ONE (13:07)
[2021-09-18] MEDS ORDERED: propofoL 200 MG/20 ML VIAL IV ONE ×2 (13:08)
--- NOTE | 2021-09-18 13:43 | ENDO RPT ---
[address], [address] EGD PROCEDURE REPORT EXAM DATE: 09/18/2021 PATIENT NAME: Nadya Quinones MR#: [id number] BIRTHDATE: 1940 ATTENDING: John Rausch Dr STATUS: inpatient - [facility] [employer]: Guerita Bo RN and Sara Singleton RN INDICATIONS: The patient is a 81 yr old Female here for an EGD due to dysphagia, nausea and vomiting, weight loss, history of GE junction cancer (s/p XRT, chemotherapy), and protein-calorie malnutrition (albumin 2.5) PROCEDURE PERFORMED: EGD, diagnostic MEDICATIONS: Per Anesthesia. TOPICAL ANESTHETIC: none CONSENT: The patient understands the risks and benefits of the procedure and understands that these risks include, but are not limited to: sedation, allergic reaction, infection, perforation and/or bleeding. Alternative means of evaluation and treatment include, among others: physical exam, x-rays, and/or surgical intervention. The patient elects to proceed with this endoscopic procedure. DESCRIPTION OF PROCEDURE: During intra-op preparation period all mechanical medical equipment was checked for proper function. Hand hygiene and appropriate measures for infection prevention was taken. Procedure, possible complications, and alternatives including but not limited to the possibility of bleeding, perforation, tear, infection, sepsis, need for surgery, need for blood transfusion, and anesthesia related complications were explained to the patient. After the risks, benefits and alternatives of the procedure were thoroughly explained, Informed consent was verified, confirmed and timeout was successfully executed by the treatment team. The patient was placed in the left lateral position. The patient was anesthetized with topical anesthesia. Through the anesthetized oropharyngeal area, the scope was passed without any difficulty. The Pentax EG-[id number] ([id number]) endoscope was introduced through the mouth and advanced to the gastroesophageal junction. Retroflexion was not performed. The gastroscope was then slowly withdrawn and removed. A circumferential near obstructing mass was found in the gastroesophageal junction. 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 ADVERSE EVENTS: There were no complications. IMPRESSIONS: 1. Circumferential near obstructing massin the gastroesophageal junction 2. 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 CPT CODES: ICD9 CODES: PATIENT NAME: Nadya Quinones MR#: [id number]
[2021-09-18] MEDS: LATANOPROST 0.005% 2.5ML OPTH OPTH SCH (20:18)
[2021-09-19] MEDS: ISOSORBIDE MONO SR 60 MG TAB PO SCH (08:55)
[2021-09-19] MEDS: LOSARTAN POTASSIUM 50 MG TABLET PO SCH (08:55)
[2021-09-19] MEDS: VITAMIN B COMPLEX 1 CAP PO SCH (08:55)
[2021-09-19] MEDS: GABAPENTIN 300 MG CAP PO SCH (08:55)
[2021-09-19] MEDS: METOPROLOL XL 25 MG TAB PO SCH (08:56)
[2021-09-19] MEDS: D5 0.9 NS 1,000 ML IV SCH ×3 (08:56→19:57)
[2021-09-19] MEDS: ENOXAPARIN 60 MG/0.6 ML SQ SCH ×2 (08:59→19:57)
--- NOTE | 2021-09-19 17:15 | P.PN ---
Date of Service: 09/19/21 Subjective Awaiting transfer; continue with IVFs; possible PEG tube in AM if not transferred Review of Systems 10-point ROS is otherwise unremarkable Physical Examination - Vital Signs Reviewed - Physical Exam General: Alert, In no apparent distress, Oriented x3 Respiratory: Clear to auscultation bilaterally, Normal air movement Cardiovascular: Regular rate/rhythm, Normal S1 S2 Gastrointestinal: Normal bowel sounds, No tenderness Neurological: Normal speech, Normal tone, Normal affect Assessment & Plan - Problems (Diagnosis) (1) Dysphagia Current Visit: Yes Status: Acute (2) Gastroesophageal cancer Current Visit: Yes Status: Acute (3) Malnourished Current Visit: Yes Status: Acute (4) HLD (hyperlipidemia) Current Visit: No Status: Chronic Qualifiers: (5) HTN (hypertension) Current Visit: No Status: Chronic - Plan Plan: Continue with plan of care as mentioned below: 1. GI consultation but unable to do PEG tube; Dr. Simon may attempt with pedi- EGD scope in the AM if not transferred 2. Speech therapy consultation appreciated 3. Monitor labs 4. IV hydration; monitor electrolytes 5. Oncology consultation appreciated 6. GI and DVT prophylaxis PENDING TRANSFER TO [facility]
[2021-09-19] MEDS: LATANOPROST 0.005% 2.5ML OPTH OPTH SCH (19:59)
--- NOTE | 2021-09-19 20:09 | P.PN ---
Subjective Date of Service: 09/19/21 Chief Complaint: Dysphagia, h/o GE junction cancer, protein-calorie malnutrion Subjective: New changes (S/p attempted EGD yesterday - unable to intubate past circumferetial friable mass with bleeding after abrasion with endoscope, no lumen to stomach visualized. Surgery consulted. Now transfer in process to tertiary center for possible esophageal stent.) Physical Examination - Vital Signs Temperature: 97.9 F Blood Pressure: 156/68 Pulse: 66 Respirations: 18 Pulse Ox (%): 95 - Studies Medications List Reviewed: Yes Assessment And Plan - Current Problems (Diagnosis) (1) Protein calorie malnutrition Current Visit: Yes Status: Acute (2) Dysphagia Current Visit: Yes Status: Acute (3) Gastroesophageal cancer Current Visit: Yes Status: Acute - Plan REC: 1) possible surgically placed G or J tube, or tertiary center for possible esophageal stent though will be difficult without visible lumen to stomach on EGD yesterday 2) IVFs and consider temporary PPN/TPN 3) monitor labs
[2021-09-20] MEDS: LOSARTAN POTASSIUM 50 MG TABLET PO SCH (09:00)
[2021-09-20] MEDS: ISOSORBIDE MONO SR 60 MG TAB PO SCH (09:00)
[2021-09-20] MEDS: METOPROLOL XL 25 MG TAB PO SCH (09:00)
[2021-09-20] MEDS: GABAPENTIN 300 MG CAP PO SCH (09:00)
[2021-09-20] MEDS: VITAMIN B COMPLEX 1 CAP PO SCH (09:00)
[2021-09-20] MEDS: ENOXAPARIN 60 MG/0.6 ML SQ SCH ×2 (09:00→21:06)
[2021-09-20 09:03] LABS: Absolute Lymphocytes (CBC) 0.7 K/uL (0.7-4.9); Basophils % 2.3 % (0-1.3); Hematocrit 30.8 % (36.0-45.0); Lymphocytes % 17.6 % (15.3-44.8); MPV 8.1 fL (7.6-11.3); RBC Red Blood Cell Count 3.28 M/uL (3.86-4.86)
[2021-09-20 09:07] LABS: Protime INR 1.15
[2021-09-20 09:14] LABS: BUN Blood Urea Nitrogen 4 mg/dL (7-18); Bicarbonate 23 mmol/L (21-32); Glucose Level 130 mg/dL (74-106); Potassium 3.1 mmol/L (3.5-5.1); Sodium Level 147 mmol/L (136-145)
[2021-09-20] MEDS ORDERED: Ringers Lactate 1,000 ML IV ONE (10:02)
[2021-09-20 11:28] VITALS: O2SAT 96
--- NOTE | 2021-09-20 11:51 | CON ---
Date of Consultation: 09/19/2021 Brief History Of Present Illness: The patient is an 81-year-old female, who has a history of known gastroesophageal cancer with worsening malnutrition, difficulty swallowing, dysphagia. She has been having weight loss. She has been receiving chemotherapy for her known metastatic gastroesop hageal cancer. She has been having difficulty with any p.o. intake and is significantly more weak, f atigued, tired, and drawn as such she was brought to the hospital, admitted at that time. Dr. Rausch was consulted as well as speech therapy to see the patient. It was recommended that she ultimately have a PEG feeding access. Dr. Rausch attempted a PEG feeding tube, however, due to the gastroesopha geal junction mass with the standard endoscope, he was unable to pass the scope safely as such he martha ndoned the procedure and recommended possible surgical intervention. As such, I am consulted to see the patient regarding possible feeding access options. Past Medical History: Significant for gastroesophageal cancer, hypertension, high cholesterol, diver ticulitis, anemia, hypertension. Past Surgical History: Included right shoulder replacement, hip replacement, colectomy. She had att empted PEG tube yesterday unsuccessfully as described above. Allergies: TO PLAVIX, DEMEROL. Home Medications: Include isosorbide mononitrate, latanoprost, losartan, vitamin D, Eliquis, azithro mycin, cefuroxime, gabapentin, metoprolol, Zofran. Social History: She has a significant smoking history in the past. Denies alcohol or recreational d rug use. Review of Systems: Ten-point review of systems other than HPI, denies. Physical Examination: Vital Signs: At the time of my examination, her BMI is 22.3. Her vital signs were blood pressure 15 6/60, heart rate 66, respiratory rate 18, temperature 97.9, SpO2 95% on room air. General: She is awake, alert, oriented. She generally appears quite thin and frail, somewhat cachec tic. HEENT: She is otherwise normocephalic. Sclerae anicteric. Mucous membranes are moist. Oropharynx is clear. Neck: Supple without JVD. Chest: Normal expansion to excursion. Cardiovascular: Regular rate and rhythm. Pulmonary: Clear to auscultation bilaterally. Abdomen: Soft, nontender, nondistended. No rebound. No guarding. No focal peritonitis. Pelvis: Stable. Skin: Otherwise, somewhat dry. Skin turgor is decreased. Assessment/plan: This is an 81-year-old female, who presents with gastroesophageal cancer and diffic ulty passing standard endoscope and requested feeding access. I did discuss the risks, benefits, alt ernatives, and surgical interventions including attempted PEG tube placement with pediatric scope. I f I can pass the scope quite easily without concern of perforation, pass the gastroesophageal mass, I would like to proceed with an attempted PEG tube using pediatric scope. However, if this has diffic ulty, I would abandon this procedure and consider open gastrostomy tube placement. The patient is no t a candidate for surgical repair in the future and cure is not possible by report. After my convers ation with Dr. Ritter as such we were placing this tube for palliative purposes. Therefore, we w ill attempt PEG tube with pediatric scope. I have explained the risks, benefits, and alternatives of this plan including, but not limited to bleeding, infection, damage to surrounding tissues, perforat ion of the esophagus, septic shock, blood clots, heart attack, bleeding, and need for further operati ons and procedures. The patient agrees to proceed as indicated. If this is unsuccessful, we will di scuss surgical intervention including open gastrostomy tube placement versus possible open jejunostom y tube, but I have stated that since she is not a candidate for surgical intervention and surgical cu re, we will likely use a gastric conduit as an attempted conduit if the PEG tube was unsuccessful. The patient agrees t o proceed as indicated. GENA/SARAH Voice ID: [id number] Report ID: [id number]
[2021-09-20] MEDS: D5W 1,000 ML IV SCH (11:55)
[2021-09-20] MEDS: JEVITY 1.5 CAL LIQUID 1,000 ML BOT FT SCH ×3 (14:00→21:00)
[2021-09-20] MEDS: LATANOPROST 0.005% 2.5ML OPTH OPTH SCH (21:04)
[2021-09-21] MEDS: D5W 1,000 ML IV SCH ×2 (01:09→13:18)
[2021-09-21] MEDS: JEVITY 1.5 CAL LIQUID 1,000 ML BOT FT SCH ×4 (08:00→17:49)
[2021-09-21] MEDS: GABAPENTIN 300 MG CAP PO SCH (09:00)
[2021-09-21] MEDS: LOSARTAN POTASSIUM 50 MG TABLET PO SCH (09:00)
[2021-09-21] MEDS: VITAMIN B COMPLEX 1 CAP PO SCH (09:00)
[2021-09-21] MEDS: METOPROLOL XL 25 MG TAB PO SCH (09:00)
[2021-09-21] MEDS: ISOSORBIDE MONO SR 60 MG TAB PO SCH (09:00)
[2021-09-21] MEDS: ENOXAPARIN 60 MG/0.6 ML SQ SCH (10:40)
[2021-09-21 12:00] LABS: Potassium 2.7 mmol/L (3.5-5.1)
[2021-09-21] MEDS: ONDANSETRON 4 MG/2 ML VIAL IV PRN (13:16)
[2021-09-21] MEDS ORDERED: POTASSIUM 25 MEQ EFFERV TAB PO ONE (13:57)
[2021-09-21] MEDS ORDERED: METOCLOPRAMIDE 10 MG/2mL INJ IV ONE (14:00)
--- NOTE | 2021-09-21 14:51 | P.PN ---
Date of Service: 09/20/21 Subjective Patient able to get PEG tube placed by General surgery. Will start tube feedings in 24 hr. Also spoke to [facility] hospitalist Team. They have accepted patient. Awaiting transfer Review of Systems 10-point ROS is otherwise unremarkable Physical Examination - Vital Signs Reviewed - Physical Exam General: Alert, In no apparent distress, Oriented x3 Respiratory: Clear to auscultation bilaterally, Normal air movement Cardiovascular: Regular rate/rhythm, Normal S1 S2 Gastrointestinal: Normal bowel sounds, No tenderness; peg tube in place Neurological: Normal speech, Normal tone, Normal affect Assessment & Plan - Problems (Diagnosis) (1) Dysphagia Current Visit: Yes Status: Acute (2) Gastroesophageal cancer Current Visit: Yes Status: Acute (3) Malnourished Current Visit: Yes Status: Acute (4) HLD (hyperlipidemia) Current Visit: No Status: Chronic (5) HTN (hypertension) Current Visit: No Status: Chronic (6) Hypernatremia Current Visit: No Status: Acute - Plan Continue with plan of care as mentioned below: 1. PEG tube placed. Start tube feedings in AM 2. Awaiting transfer to [facility]; patient has been accepted 3. Monitor labs 4. Continue with gentle IV hydration 5. Monitor hemodynamics and possible esophageal stent placement 6. GI and DVT prophylaxis
--- NOTE | 2021-09-21 14:55 | P.PN ---
Date of Service: 09/21/21 Subjective Awaiting transfer. Continue with tube feeds; continue monitoring electrolytes. Correct potassium Review of Systems 10-point ROS is otherwise unremarkable Physical Examination - Vital Signs Reviewed - Physical Exam General: Alert, In no apparent distress, Oriented x3 Respiratory: Clear to auscultation bilaterally, Normal air movement Cardiovascular: Regular rate/rhythm, Normal S1 S2 Gastrointestinal: Normal bowel sounds, No tenderness; peg tube in place Neurological: Normal speech, Normal tone, Normal affect Assessment & Plan - Problems (Diagnosis) (1) Dysphagia Current Visit: Yes Status: Acute (2) Gastroesophageal cancer Current Visit: Yes Status: Acute (3) Malnourished Current Visit: Yes Status: Acute (4) HLD (hyperlipidemia) Current Visit: No Status: Chronic (5) HTN (hypertension) Current Visit: No Status: Chronic (6) Hypernatremia/hypokalemia Current Visit: No Status: Acute - Plan Continue with plan of care as mentioned below: 1. PEG tube placed. Started tube feedings 2. Awaiting transfer to [facility]; patient has been accepted 3. Correct electrolytes 4. Continue with gentle IV hydration; 5. Monitor hemodynamics and possible esophageal stent placement 6. Out of bed and ambulate 7. GI and DVT prophylaxis
[2021-09-21] MEDS ORDERED: POTASSIUM PHOS IN 0.9 % NACL 15 MMOL/250 ML BAG IV ONE (15:00)
[2021-09-21 19:27] VITALS: BP 101/54; TEMP 98.7
== END 2021-09-21 20:40 | disposition short-term general hospital (02) | DRG 392 ==
LOC: 4TH 10:55
PROVIDERS: ADMIT Hospitalist; ATTEND Hospitalist
PROC: 0DJ08ZZ Inspection of Upper Intestinal Tract, Via Natural or Artificial Opening Endoscopic (ICD-10-PCS; principal; 2021-09-18 13:00)
PROC: 0DH63UZ Insertion of Feeding Device into Stomach, Percutaneous Approach (ICD-10-PCS; 2021-09-20)
DX: R13.10 Dysphagia, unspecified (principal); C15.9 Malignant neoplasm of esophagus, unspecified; E46 Unspecified protein-calorie malnutrition; E87.0 Hyperosmolality and hypernatremia; E78.5 Hyperlipidemia, unspecified; I10 Essential (primary) hypertension; Z68.22 Body mass index [BMI] 22.0-22.9, adult; Z88.8 Allergy status to other drugs, medicaments and biological substances; Z88.5 Allergy status to narcotic agent; Z79.01 Long term (current) use of anticoagulants; Z79.899 Other long term (current) drug therapy; Z96.611 Presence of right artificial shoulder joint; Z96.649 Presence of unspecified artificial hip joint; Z87.891 Personal history of nicotine dependence; Z20.822 Contact with and (suspected) exposure to COVID-19
CPT/HCPCS: 36415; 43760; 80048; 80053; 82947; 85018; 85025; 85610; 85730; 92610; 99214; J0690; J1650; J2270; J2405; J2704; J2765; J7030; J7042; J7120; U0003